=== PATIENT | female | born 1945 | race Caucasian/White ===

== ENCOUNTER 2020-03-27 08:19 | Outpatient (CLI) | payer OTHER, MEDICARE, SELFPAY ==
[2020-03-27 08:52] LABS: Creatinine Urine 237.57 mg/dL (40-278); MALB Creatinine Ratio 29.3 mg/g (0-30); Microalbumin Urine Random 69.8 mg/L
[2020-03-27 08:58] LABS: Hemoglobin A1C 6.2 % (<5.7)
[2020-03-27 09:39] LABS: Alanine Aminotransferase 42 U/L (14-59); Albumin Level 4.1 g/dL (3.4-5.0); Alkaline Phosphatase 86 U/L (46-116); Anion Gap 10 mmol/L (8-16); Aspartate Amino Transferase 44 U/L (15-37); Bilirubin,Total 0.4 mg/dL (0.00-1.00); Blood Urea Nitrogen 18 mg/dL (7-18); Calcium 8.9 mg/dL (8.5-10.1); Carbon Dioxide 26 mmol/L (21-32); Chloride 100 mmol/L (98-108); Cholesterol 172 mg/dL (0-200); Estimated Glomerular Filt Rate 40; Glucose 140 mg/dL (70-99); HDL Direct 64 mg/dL (40-60); LDL Cholesterol Calculated 96 mg/dL (<130); Osmolality Calculated 285 mOsm/kg (285-295); Potassium 4.4 mmol/L (3.5-5.1); Sodium 136 mmol/L (136-145); Total Protein 7.5 g/dL (6.4-8.2); Triglycerides 58 mg/dL (0-150)
== END 2020-03-27 08:20 | disposition home or self-care (01) ==
PROVIDERS: PCP Internal Medicine; Visit Provider Internal Medicine
DX: R73.02 Impaired glucose tolerance (oral) (principal); E78.2 Mixed hyperlipidemia
CPT/HCPCS: 36415; 80053; 80061; 82043; 83036

== ENCOUNTER 2020-04-05 21:09 | Inpatient (IN) | payer OTHER, MEDICARE, SELFPAY ==
--- NOTE | ~2020-04-05 | XR_ITS ---
EXAMINATION: XR chest 1V portable INDICATION: Shortness of breath and fatigue TECHNIQUE: Portable AP chest at 2145 hours COMPARISON: None available FINDINGS: There are airspace opacities of the mid and lower lung zones. No pleural effusion or pneumo thorax is identified. Cardiomegaly is noted. IMPRESSION: 1. Airspace opacities of the mid and lower lung zones, consistent with atelectasis versus pneumonia. Reviewed, dictated and finalized at location A. IMPRESSION: 1. Airspace opacities of the mid and lower lung zones, consistent with atelecta sis versus pneumonia.
--- NOTE | ~2020-04-05 | US_ITS ---
EXAMINATION: US venous doppler [facility] DATE: 04/08/2020 08:13 INDICATION: Shortness of breath TECHNIQUE: Paul scale images without and with compression and Doppler images of the bilateral lower e xtremity veins were obtained. COMPARISON: None FINDINGS: The right common femoral vein, profunda femoral vein, femoral vein, popliteal vein, peroneal trunk, p osterior tibial veins, and greater saphenous vein are patent. The left common femoral vein, profunda femoral vein, femoral vein, popliteal vein, peroneal trunk, po sterior tibial veins, and greater saphenous vein are patent. IMPRESSION: 1. Patent bilateral lower extremity veins. No evidence of deep venous thrombosis. Reviewed, dictated and finalized at location A. IMPRESSION: 1. Patent bilateral lower extremity veins. No evidence of deep venous thrombosi s.
--- NOTE | ~2020-04-05 | CT_ITS ---
EXAMINATION: CTA chest PE protocol DATE: 04/05/2020 23:24 INDICATION: Shortness of breath TECHNIQUE: Computed tomography angiography (CTA) of the chest was performed with 100 mL Omnipaque-350 intravenous contrast timed to evaluate the pulmonary arteries. Coronal maximum intensity projection 3D-reconstructions were created by the technologist. The dose-length product (DLP) was 589.05 mGy-cm. Automated exposure control and iterative reconstruction technique were employed. COMPARISON: None. FINDINGS: The pulmonary arteries are well-opacified. No pulmonary embolism is identified. There are w idespread groundglass airspace opacities throughout all lung zones. There is no pleural effusion or p neumothorax. The heart size is normal. There is mild bilateral hilar and mediastinal lymphadenopathy. There is enlargement of the main and central pulmonary arteries, consistent with pulmonary hypertens ion. A small sliding hiatal hernia is present. There is mild thoracic spondylosis. IMPRESSION: 1. Widespread groundglass opacities of the lungs which could reflect pneumonia, such as COVID 19 pneu monia, or pulmonary edema. Reviewed, dictated and finalized at location A. IMPRESSION: 1. Widespread groundglass opacities of the lungs which could reflect pneumonia, such as COVID 19 pneumonia, or pulmonary edema.
--- NOTE | 2020-04-05 21:17 | ED.SOB ---
HPI - SOB/Dyspnea General Chief Complaint: Shortness of Breath/Dyspnea Stated Complaint: SOB Time Seen by Provider: 04/05/20 21:18 Source: patient Mode of arrival: ambulatory Limitations: no limitations History of Present Illness HPI Narrative: 74-year-old woman comes in today complaining of progressively worse shortness of breath and pain in her legs with ambulation. She states that she began to feel fatigued approximately 1 week ago and the pain in her leg started about 5 days ago. She has a cough, poor appetite, and states that nothing tastes good. She denies chest pain, leg swelling or tenderness, abdominal pain, nausea, vomiting, fever, night sweats or dysuria. She denies previous similar symptoms. MD elicited complaint: shortness of breath and cough Onset (ago): week(s) (1) Timing: progressively worsening Severity: moderate Exacerbating factors: exertion and coughing Relieving factors: rest Associated symptoms: cough Related Data Home Medications Medication Instructions Recorded Confirmed lisinopril 40 mg tablet 40 mg PO DAILY 01/03/20 04/05/20 Allergies Allergy/AdvReac Type Severity Reaction Status Date / Time Penicillins Allergy hives Verified 01/03/20 14:00 Review of Systems Constitutional: Constitutional: Denies chills, Reports fatigue, Denies fever(s) and Denies weakness Eyes: Eyes: Denies change in vision and Denies photophobia ENT: Denies dysphagia, Denies nasal congestion and Denies sore throat Cardiovascular: Cardiovascular: Denies chest pain and Denies radiating jaw, neck or arm pain Respiratory: Respiratory: Denies cough, Denies dyspnea and Denies wheezing Gastrointestinal: Gastrointestinal: Denies abdominal pain, Denies diarrhea, Denies nausea and Denies vomiting Genitourinary: Genitourinary: Denies dysuria Musculoskeletal: Musculoskeletal: Reports as per HPI, Denies arthralgias and Denies joint swelling Comments: Lower leg pain with exertion. Integumentary/Breasts: Skin/Breast: Denies pruritus, Denies erythema and Denies rash Neurologic: Denies vertigo, Denies dizziness and Denies syncope Hematologic/Lymphatic: Hematologic/Lymphatic: Denies easy bleeding and Denies easy bruising Allergic/Immunologic: Allergic/Immunologic: Denies lip swelling and Denies tongue swelling PMFSH Past Medical History Medical History High blood pressure Surgical History Surgical History History of cataract surgery Social History Social History (Updated 04/05/20 @ 21:31 by Michael Brody MD) Smoking status: Never smoker Alcohol intake: never Substance use: never Living arrangements: with family Occupation/Education: occupation 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 Gender identity (if verbalized by the patient): Female Exam Const: General: alert Nutritional Appearance: obese Orientation/consciousness: patient oriented x3 Limitations: no limitations Other: Mild acute distress. HENMT: Head: normal to inspection Ears: external ears normal, TM's normal bilaterally and EAC's normal General nose exam: Normal nares present Face and sinus: normal facial exam Mouth: Yes moist mucous membranes Throat: posterior oropharynx normal Eyes: Conjunctivae: conjunctivae normal Pupils: Equal, round and reactive pupils present EOM: EOMs intact bilaterally Resp: Effort & Inspection: normal respiratory effort, labored ( Mildly increased work of breathing.) and no use of accessory muscles Auscultation: clear to auscultation bilaterally, no rales, no rhonchi and no wheezes Cardio: Rate: regular rate Rhythm: regular rhythm Heart sounds: no murmurs Other: Dorsalis pedis pulses are full and symmetric. Extremities are warm dry and pink. Bilaterally there is no calf tenderness or Homans sign. GI: GI Palp: Yes Soft to palpa
[2020-04-05 21:20] VITALS: BP 186/74; PULSE 83; RESP 20; TEMP 37; O2SAT 89
[2020-04-05 21:26] VITALS: O2SAT 89
--- NOTE | 2020-04-05 21:34 | ECG_ITS ---
Measurements Intervals [place] Rate: 82 P: 0 RI: 147 QRS: 14 QRSD: 89 T: 67 QT: 324 QTc: 379 Interpretive Statements SINUS RHYTHM LEFT VENTRICULAR HYPERTROPHY AND ST-T CHANGE MINIMAL Q WAVES- HIGH LATERAL LEADS BASELINE ARTIFACT- I, II, III BORDERLINE ECG Electronically Signed On 04-06-2020 8:35:42 CDT by Kendall Doe D.O.
[2020-04-05 21:38] VITALS: PULSE 84
[2020-04-05 22:11] LABS: Basophils Absolute Auto 0.01 K/mm3 (0.00-0.10); Basophils Percent Auto 0.2 % (0.0-1.0); Eosinophils Absolute Auto 0.01 K/mm3 (0.02-0.50); Eosinophils Percent Auto 0.2 % (1.0-6.0); Hemoglobin 8.1 g/dL (11.7-13.8); Immature Granulocyte Absolute 0.02 K/mm3 (0.00-0.00); Immature Granulocyte Percent A 0.4 % (0.0-0.0); Lymphocytes Absolute Auto 1.09 K/mm3 (1.10-4.50); Lymphocytes Percent Auto 19.7 % (18.0-42.0); Mean Corpuscular Hemoglobin 21.6 pg (27.0-31.0); Mean Platelet Volume 9.3 fl (9.2-11.8); Monocytes Absolute Auto 0.44 K/mm3 (0.10-0.90); Neutrophils Percent Auto 71.5 % (50.0-70.0); Platelet Count Result 372 K/mm3 (150-420); Red Blood Count 3.75 M/mm3 (4.20-5.40); Red Cell Distribution Width 15.1 % (11.6-14.4); White Blood Count 5.5 K/mm3 (4.8-10.8)
[2020-04-05 22:15] LABS: Base Excess ABG -0.4 mmol/L (0-2); Carboxyhemoglobin 0.1 % (0-1.5); HCO3 ABG 22.7 mmol/L (23-29); Methemoglobin ABG 0.7 % (0-1.5); Oxygen Content ABG 10.9 %vol (16.0-22.0); Oxygen Saturation ABG 90.2 % (95-97); Oxyhemoglobin 89.5 % (94-100); PO2 ABG 60.1 mmHg (75-85); Reduced Hemoglobin 9.7 % (0-1.5); Total Hemoglobin 8.6 g/dL; pH ABG 7.48 (7.35-7.45)
[2020-04-05 22:16] VITALS: O2SAT 91
[2020-04-05 22:16] LABS: Device ROOM AIR; Modified Allen's Test Pass; Site Drawn RIGHT RADIAL
[2020-04-05 22:29] LABS: Partial Thromboplastin Time 29.1 SEC (22.3-31.6); Prothrombin Time 10.7 Seconds (9.64-11.0)
[2020-04-05 22:35] LABS: D Dimer 1.44 mg/L (0.19-0.50)
[2020-04-05 22:37] LABS: Lactic Acid Reflex 1.2 mmol/L (0.4-2.0)
[2020-04-05 22:41] LABS: Alanine Aminotransferase 32 U/L (14-59); Albumin Level 3.1 g/dL (3.4-5.0); Alkaline Phosphatase 94 U/L (46-116); Anion Gap 12 mmol/L (8-16); Aspartate Amino Transferase 42 U/L (15-37); Bilirubin,Total 0.5 mg/dL (0.00-1.00); Blood Urea Nitrogen 19 mg/dL (7-18); Calcium 9.2 mg/dL (8.5-10.1); Carbon Dioxide 25 mmol/L (21-32); Chloride 99 mmol/L (98-108); Estimated CRCL calculation 36 ml/min; Estimated Glomerular Filt Rate 40; Glucose 144 mg/dL (70-99); Osmolality Calculated 287 mOsm/kg (285-295); Potassium 4.1 mmol/L (3.5-5.1); Sodium 136 mmol/L (136-145); Total Protein 7.3 g/dL (6.4-8.2)
[2020-04-05 22:42] LABS: BNP 53.6 pg/mL (0-100); Troponin I < 0.02 ng/mL (0.00-0.056)
[2020-04-05 22:43] LABS: CRP > 10.6 mg/dL (0.0-0.9)
[2020-04-05 22:47] LABS: Add Urine Microscopic? YES; Appearance Urine Clear (Clear); Bilirubin Urine Negative (Negative); Blood Urine Negative (Negative); Color Urine Yellow (Yellow); Glucose Urine UA Negative (Negative); Ketones Urine Negative (Negative); Leukocyte Esterase Ur 1+ LEU/UL (Negative); Nitrate Urine Negative (Negative); Protein Urine Negative (Negative); Specific Grav Ur 1.015 (1.010-1.020); pH Urine 5.5 (5.0-8.0)
[2020-04-05 22:56] LABS: RBC Urine 0-2 /hpf (0-2)
[2020-04-05 22:57] LABS: Bacteria Urine 1+ /hpf; Squamous Epithelial Cell Urine Rare /hpf (Few); WBC Urine 21-30 /hpf (0-3)
--- NOTE | 2020-04-05 23:13 | PC.NURSE ---
Report given to Brii RN
[2020-04-05 23:15] LABS: Creatine Kinase 91 U/L (26-192)
[2020-04-05] MEDS: SODIUM CHLORIDE 0.9% IV 500 ML 999 ML IV CONT (23:40)
[2020-04-05 23:41] VITALS: BP 140/72; PULSE 73; RESP 22; TEMP 37; O2SAT 95
[2020-04-05 23:51] VITALS: PULSE 69
[2020-04-06] VITALS (12 sets, daily range): BP systolic 116–160; BP diastolic 45–78; PULSE 63–80; RESP 18–20; TEMP 36.2–36.6; O2SAT 78–98; BMI 32.7
--- NOTE | 2020-04-06 01:10 | ADMGEN ---
This patient, Annie Virgen, was admitted to 2nd Floor Room 210-1. Patient/family oriented to hospital policies and general routines including ID bracelet, bed and alarms, visiting hours, pain management, procedures, bathroom and other care routines, personal items, smoking policy, room service/diet, and visiting hours. Valuables list has been completed. Information on how to activate the Rapid Response Team has been discussed. Patient/Family are encouraged to report perceived risks to care and to ask questions if they do not understand what they are told or what they should do.
[2020-04-06] MEDS: SODIUM CHLORIDE 0.9% IV 1,000 ML 100 ML IV CONT (01:49)
[2020-04-06] MEDS: ACETAMINOPHEN 325 MG TABLET 650 MG PO ×3 (01:50→20:26)
--- NOTE | 2020-04-06 01:50 | PC.NURSE ---
Patient admitted to room 210 at 0110 from ER. Patient on 3 liters O2 by nasal cannula started in ER. Also present at time of admission were 2 peripheral IV sites. Patient alert and oriented. Patient is able to ambulate independently. Once patient was settled in bed, she was placed on telemetry and oxygen was started from the wall unit in the room. Patient stated that she works in [place] and was informed that one of her coworkers tested positive for Covid 19. The Patient states that she began having symptoms such and cough and SOB on Sunday 04/01 and She was tested for Covid 19 on 04/04 at approximately 1030 at [facility]. Patient is also reporting that prior to coming to the hospital she was having cramping in her calves bilaterally, she is denying this pain at the time of admission but she is reporting a headache. Patient was informed of how to use the call light and bed controls patient was also shown how to unplug the IV pole for ambulation.
[2020-04-06 05:42] LABS: Basophils Absolute Auto 0.01 K/mm3 (0.00-0.10); Basophils Percent Auto 0.2 % (0.0-1.0); Eosinophils Absolute Auto 0.02 K/mm3 (0.02-0.50); Eosinophils Percent Auto 0.3 % (1.0-6.0); Hematocrit 26.2 % (35.0-42.0); Hemoglobin 7.8 g/dL (11.7-13.8); Immature Granulocyte Absolute 0.03 K/mm3 (0.00-0.00); Immature Granulocyte Percent A 0.5 % (0.0-0.0); Lymphocytes Percent Auto 22.2 % (18.0-42.0); Mean Corpuscular HGB Conc 29.8 g/dL (32.0-36.0); Mean Corpuscular Hemoglobin 21.6 pg (27.0-31.0); Mean Corpuscular Volume 72.6 fL (78.0-102.0); Mean Platelet Volume 8.6 fl (9.2-11.8); Monocytes Percent Auto 8.5 % (2.0-11.0); Neutrophils Percent Auto 68.3 % (50.0-70.0); Platelet Count Result 350 K/mm3 (150-420); Red Blood Count 3.61 M/mm3 (4.20-5.40); White Blood Count 5.9 K/mm3 (4.8-10.8)
[2020-04-06 05:57] LABS: Alanine Aminotransferase 25 U/L (14-59); Albumin Level 2.9 g/dL (3.4-5.0); Alkaline Phosphatase 86 U/L (46-116); Anion Gap 9 mmol/L (8-16); Aspartate Amino Transferase 37 U/L (15-37); Bilirubin,Total 0.3 mg/dL (0.00-1.00); Blood Urea Nitrogen 16 mg/dL (7-18); Calcium 8.8 mg/dL (8.5-10.1); Carbon Dioxide 26 mmol/L (21-32); Chloride 102 mmol/L (98-108); Estimated CRCL calculation 39 ml/min; Estimated Glomerular Filt Rate 41; Glucose 151 mg/dL (70-99); Osmolality Calculated 288 mOsm/kg (285-295); Potassium 4.2 mmol/L (3.5-5.1); Sodium 137 mmol/L (136-145); Total Protein 6.9 g/dL (6.4-8.2)
[2020-04-06] MEDS: ALBUTEROL SULFATE (*SP) INHALER 2 PUFF INHALATION ×4 (06:13→20:24)
--- NOTE | 2020-04-06 06:14 | PC.NURSE ---
Dr Brody notified of morning lab values. No New Orders.
[2020-04-06] MEDS: ENOXAPARIN 100 MG/ML SYRINGE 90 MG SUB-Q (09:32)
[2020-04-06] MEDS: lisinopriL 20 MG TABLET 40 MG PO (09:33)
--- NOTE | 2020-04-06 11:54 | PC.NURSE ---
1030 Called Urgent care in [place] to see covid results back yet. No results back yet.
--- NOTE | 2020-04-06 12:28 | PM.IMHP ---
H&P: HPI History of Present Illness Date/Time: 04/06/20 12:28 <KIMBERLY Ramirez - Last Filed: 04/06/20 13:08> Chief complaint: SOB <KIMBERLY Ramirez - Last Filed: 04/06/20 13:08> Narrative: Annie Virgen is a 74 year old female that presented to the ED with complaints of shortness of breath, dyspnea and fatigue.According to patient she became fatigued with shortness of breath and developed leg pains bilaterally last Wednesday. She noted that she was able to go to work Wednesday and Wednesday. she was not able to go to work on due to increased shortness of breath, fatigue and worsening leg pain. she also noted that she had a cough or with a poor appetite and change in her taste buds. 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 patient did not do anything at home to relieve her symptoms. her vital signs are 97.4, 63, 20, 96 %, 127/50. Chest x-ray indicated pneumonia, CTA indicated pneumonia versus COVID-19 versus pulmonary edema. Patient's D-dimer elevated at 1.44. Patient EKG showing sinus rhythm and patient's UA shows leukocytes with bacteria. Her WBCs were within normal limits. Patient is being admitted to rule out COVID-19 and treated for CAP. Patient denies cp, , palpitation, diarrhea, constipation, lightheadness, headache, dizziness or chills and fevers. <KIMBERLY Ramirez - Last Filed: 04/06/20 13:08> Review of Systems Review of Systems: All systems reviewed & are unremarkable except as noted in HPI and below ( 10 point system review) <KIMBERLY Ramirez - Last Filed: 04/06/20 13:08> [facility] Past Medical History Medical History: Medical History High blood pressure <KIMBERLY Ramirez - Last Filed: 04/06/20 13:08> Surgical History Surgical History: Surgical History History of cataract surgery <KIMBERLY Ramirez - Last Filed: 04/06/20 13:08> Social History Social History: Social History (Updated 04/05/20 @ 21:31 by Michael Brody MD) Smoking status: Never smoker Alcohol intake: never Substance use: never Living arrangements: with family Occupation/Education: occupation 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 Gender identity (if verbalized by the patient): Female Spiritual care concerns: No <KIMBERLY Ramirez - Last Filed: 04/06/20 13:08> Meds Home Medications and Allergies Home medications: Home Medications Medication Instructions Recorded Confirmed Type lisinopril 40 mg tablet 40 mg PO DAILY 01/03/20 04/05/20 History <KIMBERLY Ramirez - Last Filed: 04/06/20 13:08> Allergies/Adverse reactions: Allergies Allergy/AdvReac Type Severity Reaction Status Date / Time Penicillins Allergy hives Verified 01/03/20 14:00 <KIMBERLY Ramirez - Last Filed: 04/06/20 13:08> Vital Signs Vital Signs - 24 hr 04/05/20 21:20 04/05/20 21:26 04/05/20 21:38 Temperature 98.6 F Pulse Rate 83 84 Respiratory Rate 20 Blood Pressure 186/74 H Pulse Oximetry 89 L 89 L 04/05/20 22:16 04/05/20 23:41 04/05/20 23:51 Temperature 98.6 F Pulse Rate 73 69 Respiratory Rate 22 H Blood Pressure 140/72 Pulse Oximetry 91 95 04/06/20 01:20 04/06/20 01:37 04/06/20 01:38 Temperature 97.2 F L 98 F Pulse Rate 69 69 66 Respiratory Rate 18 18 18 Blood Pressure 160/68 H 140/78 Pulse Oximetry 95 95 98 04/06/20 02:54 04/06/20 04:00 04/06/20 07:44 Temperature 97.4 F L Pulse Rate 63 64 Respiratory Rate 18 20 Blood Pressure 127/50 L Pulse Oximetry 96 04/06/20 08:00 Temperature 97.9 F Pulse Rate 70 Respiratory Rate 20 Blood Pressure 122/51 L Pulse Oximetry 94 <GIULIA RamirezC - Last Filed: 04/06/20 13:08> Exam Narrativ
--- NOTE | 2020-04-06 19:30 | PC.NURSE ---
Pt resting per bed, watching TV. Has no complaints. Belongings within reach. Call tena in reach. Reminded to call with needs.
[2020-04-06] MEDS: APIXABAN 2.5 MG TABLET 10 MG PO (20:22)
--- NOTE | 2020-04-06 22:27 | PC.NURSE ---
PT WATCHING TV PER BED. STATES SHE STILL HAS A RANDALL, RATES 5 ON 1-10 SCALE. HAS NO OTHER COMPLAINTS. STATES SHE JUST NEEDS TO GO TO SLEEP. CALL SEVILLA IN REACH. REMINDED TO CALL WITH NEEDS.
[2020-04-07] VITALS (8 sets, daily range): BP systolic 106–149; BP diastolic 49–76; PULSE 61–82; RESP 18–20; TEMP 36–36.8; O2SAT 90–97
[2020-04-07] MEDS: ACETAMINOPHEN 325 MG TABLET 650 MG PO (05:15)
[2020-04-07] MEDS: ALBUTEROL SULFATE (*SP) INHALER 2 PUFF INHALATION ×4 (05:29→20:40)
[2020-04-07 05:49] LABS: Hematocrit 25.5 % (35.0-42.0); Hemoglobin 7.5 g/dL (11.7-13.8); Mean Corpuscular HGB Conc 29.4 g/dL (32.0-36.0); Mean Corpuscular Hemoglobin 21.6 pg (27.0-31.0); Mean Corpuscular Volume 73.3 fL (78.0-102.0); Mean Platelet Volume 9.1 fl (9.2-11.8); Platelet Count Result 396 K/mm3 (150-420); Red Blood Count 3.48 M/mm3 (4.20-5.40); White Blood Count 5.5 K/mm3 (4.8-10.8)
[2020-04-07 06:12] LABS: Alanine Aminotransferase 22 U/L (14-59); Albumin Level 2.7 g/dL (3.4-5.0); Alkaline Phosphatase 86 U/L (46-116); Anion Gap 10 mmol/L (8-16); Aspartate Amino Transferase 38 U/L (15-37); Bilirubin,Total 0.4 mg/dL (0.00-1.00); Blood Urea Nitrogen 14 mg/dL (7-18); Calcium 8.4 mg/dL (8.5-10.1); Carbon Dioxide 25 mmol/L (21-32); Chloride 103 mmol/L (98-108); Estimated CRCL calculation 41 ml/min; Estimated Glomerular Filt Rate 43; Glucose 167 mg/dL (70-99); Magnesium 1.9 mg/dL (1.8-2.4); Osmolality Calculated 290 mOsm/kg (285-295); Potassium 4.4 mmol/L (3.5-5.1); Sodium 138 mmol/L (136-145); Total Protein 6.3 g/dL (6.4-8.2)
[2020-04-07 06:15] LABS: Total Cells Counted 100
[2020-04-07 06:16] LABS: Anisocytosis 1+ (NORMAL); Band Neutrophils Percent 0 % (0-6); Basophils Percent Manual 0 % (0-1); Eosinophils Absolute Manual 0.11 K/mm3 (0.02-0.5); Eosinophils Percent Manual 2 % (1-6); Hypochromasia 1+ (NORMAL); Lymphocytes Absolute Manual 1.26 K/mm3 (1.1-4.5); Lymphocytes Percent Manual 23 % (18-44); Monocytes Absolute Manual 0.27 K/mm3 (0.1-0.90); Monocytes Percent Manual 5 % (3-9); Neutrophils Absolute Manual 3.85 K/mm3 (1.7-7.2); Neutrophils Percent Manual 70 % (46-73); Platelet Estimate Adequate (Adequate)
[2020-04-07 06:17] LABS: Atypical Lymphocytes Present
[2020-04-07 06:39] LABS: CRP 17.6 mg/dL (0.0-0.9)
[2020-04-07] MEDS: APIXABAN 2.5 MG TABLET 10 MG PO ×2 (08:12→20:40)
[2020-04-07] MEDS: lisinopriL 20 MG TABLET 40 MG PO (08:13)
--- NOTE | 2020-04-07 08:54 | WPDPN ---
Progress Note: A&P Assessment and Plan (1) High blood pressure: Code(s): I10 - Essential (primary) hypertension Status: Acute Assessment and Plan: blood pressure 126/50 control continue to monitor vital signs as ordered stat adjust medication as needed continue lisinopril 40 mg p.o. daily (2) COVID-19 ruled out: Code(s): Z03.818 - Encounter for observation for suspected exposure to other biological agents ruled out Status: Acute Assessment and Plan: recent exposure continue isolation COVID-19 pending (3) Community acquired pneumonia: Code(s): J18.9 - Pneumonia, unspecified organism Status: Acute Assessment and Plan: chest x-ray indicated Airspace opacities of the mid and lower lung zones, consistent with atelectasis versus pneumonia. CTA indicates Widespread groundglass opacities of the lungs which could reflect pneumonia, such as COVID 19 pneumonia, or pulmonary edema. continue azithromycin 250 mg Q 24 hours day 2 Patient will possibly need at home to eval if not able to titrate off of oxygen. (4) Elevated d-dimer: Code(s): R79.89 - Other specified abnormal findings of blood chemistry Status: Acute Assessment and Plan: CTA PE patient does complain of may pains with ambulation, Homans test negative patient started on Eliquis 10 mg b.i.d. for 7 days Doppler unable to be completed until Wednesday Review of Systems Review of Systems: All systems reviewed & are unremarkable except as noted in HPI and below ( 10 point system review) Exam Narrative: Exam Narrative: General: A well-developed, well-nourished fatigued female in bed no acute distress. HEENT: Normocephalic, atraumatic. PERRL, EOMI. Sclerae anicteric. Oral mucosa moist. Oropharynx clear. Neck: Supple. Respiratory: crackles in base Cardiovascular: Regular rate and rhythm with S1-S2. Gastrointestinal: Abdomen is soft, nontender, and nondistended with positive bowel sounds. No organomegaly. Skin: Warm, dry, and slightly pale.. No rash or lesions on limited exam. Extremities: No cyanosis, clubbing, or edema. Radial and pedal pulses intact. Neurological: Alert. Cranial nerves 2-12 are grossly intact. No gross focal deficits to casual conversation. Psychiatric: Pleasant and cooperative with normal mood and affect. Judgment and insight intact. Objective Data Vital Signs Vital Signs: Vital Signs - 24 hr 04/06/20 12:00 04/06/20 15:40 04/06/20 15:44 Temperature 97.3 F L Pulse Rate 67 80 Respiratory Rate 20 Blood Pressure 126/45 L 116/58 L Pulse Oximetry 96 94 78 L 04/06/20 16:35 04/06/20 19:23 04/07/20 00:00 Temperature 97.6 F 96.8 F L Pulse Rate 70 77 66 Respiratory Rate 20 20 Blood Pressure 136/56 L 149/53 H Pulse Oximetry 94 96 04/07/20 04:00 04/07/20 07:49 Temperature 97.2 F L Pulse Rate 66 64 Respiratory Rate 18 Blood Pressure 126/50 L Pulse Oximetry 97 Intake/Output Intake/Output: Intake & Output 04/04/20 04/05/20 04/06/20 04/07/20 23:59 23:59 23:59 23:59 Intake Total 2910 660 Output Total 1550 950 Balance 1360 -290 Meds/Results Medications: Active Medications Generic Name Dose Route Start Last Admin Trade Name Freq PRN Reason Stop Dose Admin Acetaminophen 650 mg 04/05/20 23:51 04/07/20 05:15 Tylenol Tablet PO 650 mg Q4H PRN Administration Mild Pain (1-3) or Fever Hydrocodone Bitart/Acetaminophen 1 tab 04/07/20 08:47 Dougherty 5-325 Mg PO Q6H PRN Pain Rated 7-10 Albuterol 2 puff 04/06/20 06:30 04/07/20 05:29 Proventil Hfa INHALATION 2 puff QIDRT DAE Administration Apixaban 10 mg 04/06/20 21:00 04/07/20 08:12 Eliquis PO 04/13/20 21:01 10 mg Q12HR DAE Administration Ceftriaxone Sodium/Dextrose 1 gm in 50 mls @ 100 mls/hr 04/07/20 00:00 04/07/20 01:00 Rocephin 1 Gm/D5w 50 Ml IVPB Infused Q24H DAE Infusion Azithromycin 500 mg/
--- NOTE | 2020-04-07 10:17 | PC.NURSE ---
When called urgent care in [place] about the covid results for patient not in yet.
[2020-04-07] MEDS: DEXAMETHASONE SOD PHOS INJ 4 MG/ML VIAL 6 MG IV PUSH (13:12)
[2020-04-07] MEDS: REMDESIVIR 200 MG/NS 250 ML 200 MG/250 ML BAG 250 MG IVPB (13:13)
[2020-04-07] MEDS: HYDROcodone/acetaminophen (*CRX) 5-325 MG TABLET 1 TAB PO (18:06)
--- NOTE | 2020-04-07 19:32 | PC.NURSE ---
Patient sleeping quietly in bed, no signs of distress noted. Breathing unlabored. 02@3l per nc cont. Call light within reach.
--- NOTE | 2020-04-07 21:25 | PC.NURSE ---
Patient resting quietly in bed. Denies any needs. Call light at side.
--- NOTE | 2020-04-07 22:15 | PC.NURSE ---
Patient resting quietly in bed, hob elevated watching tv. Reports no needs at this time. Call light and belongings within reach.
[2020-04-08] VITALS: BP 112/45; PULSE 62; RESP 20; TEMP 36.9; O2SAT 92
--- NOTE | 2020-04-08 00:09 | PC.NURSE ---
Pt resting quietly in bed and oxygen is on at 3 liters per nasal cannula. Pt doesnt voice any c/o shortness of breath and no signs of respiratory distress noted.
--- NOTE | 2020-04-08 02:05 | PC.NURSE ---
Pt asleep and no signs of respiratory distress noted.
[2020-04-08 04:00] VITALS: BP 125/53; PULSE 48; PULSE 64; RESP 20; TEMP 36.4; O2SAT 96
--- NOTE | 2020-04-08 04:10 | PC.NURSE ---
Pt asleep and no signs of respiratory distress noted.
[2020-04-08 05:47] LABS: Hematocrit 25.9 % (35.0-42.0); Hemoglobin 7.5 g/dL (11.7-13.8); Mean Corpuscular Hemoglobin 21.1 pg (27.0-31.0); Mean Platelet Volume 9.2 fl (9.2-11.8); Platelet Count Result 443 K/mm3 (150-420); Red Blood Count 3.55 M/mm3 (4.20-5.40); Red Cell Distribution Width 14.9 % (11.6-14.4); White Blood Count 4.1 K/mm3 (4.8-10.8)
[2020-04-08 06:10] LABS: Alanine Aminotransferase 18 U/L (14-59); Albumin Level 2.6 g/dL (3.4-5.0); Alkaline Phosphatase 87 U/L (46-116); Anion Gap 10 mmol/L (8-16); Aspartate Amino Transferase 44 U/L (15-37); Bilirubin,Total 0.4 mg/dL (0.00-1.00); Blood Urea Nitrogen 18 mg/dL (7-18); Calcium 8.6 mg/dL (8.5-10.1); Carbon Dioxide 24 mmol/L (21-32); Chloride 105 mmol/L (98-108); Estimated CRCL calculation 44 ml/min; Estimated Glomerular Filt Rate 47; Glucose 182 mg/dL (70-99); Magnesium 2.3 mg/dL (1.8-2.4); Osmolality Calculated 294 mOsm/kg (285-295); Potassium 4.7 mmol/L (3.5-5.1); Sodium 139 mmol/L (136-145); Total Protein 6.5 g/dL (6.4-8.2)
[2020-04-08 06:19] LABS: CRP 18.6 mg/dL (0.0-0.9)
[2020-04-08] MEDS: ALBUTEROL SULFATE (*SP) INHALER 2 PUFF INHALATION ×4 (06:37→20:21)
--- NOTE | 2020-04-08 06:47 | PC.NURSE ---
Pt given albuterol hfa 2 puffs as ordered
--- NOTE | 2020-04-08 07:58 | PM.IMPN ---
Progress Note: A&P Assessment and Plan (1) High blood pressure: Code(s): I10 - Essential (primary) hypertension Status: Acute Assessment and Plan: 04/08/2020 vital signs stable, continue to monitor vital signs, adjust medication as needed, continue lisinopril 40 mg p.o. daily (2) Community acquired pneumonia: Code(s): J18.9 - Pneumonia, unspecified organism Status: Acute Assessment and Plan: 04/08/2020 patient states her breathing is improved since her stay, Supplemental oxygen for SP O2 92% or greater, azithromycin was stopped by pharmacy, continue with COVID medication regimen as noted below (3) Elevated d-dimer: Code(s): R79.89 - Other specified abnormal findings of blood chemistry Status: Acute Assessment and Plan: 04/08/2020 CTA does not show PE per radiologist report, Eliquis this stopped due to COVID positive Lovenox started, will monitor respiratory status and vital signs Radiologist Impression: 1. Patent bilateral lower extremity veins. No evidence of deep venous thrombosis.y (4) COVID-19 virus detected: Code(s): U07.1 - COVID-19 Status: Acute Assessment and Plan: 04/08/2020 continue Remdesivir and dexamethasone, monitor respiratory status and vital signs, supplemental oxygen as needed Time Spent With Patient Time with patient: 15 - 25 minutes Subjective Date/time seen: 04/08/20 07:58 patient understands that she is positive for COVID-19. she denies any shortness of breath at this time but she does admit that she has periodic coughing. Denies any muscle aches or body aches in no feeling fevers or chills. Patient states to which she could go back home into her 14 day isolation there with her sister who is her roommate. Her sister is awaiting her COVID test results. Patient would like paperwork filled out for her regarding short-term disability while she is on her 14 day isolation whether be here or at home. informed patient I will fill this out as soon as I get a copy of the paperwork. Review of Systems Constitutional: Constitutional: Reports no additional constitutional complaints, Denies body ache(s), Denies chills, Denies fatigue and Denies fever(s) Cardiovascular: Cardiovascular: Reports no additional cardiovascular complaints, Denies chest pain, Denies chest pain at rest, Denies dyspnea, Denies dyspnea on exertion and Denies orthopnea Comments: Respiratory: Respiratory: Reports cough (Admits to coughing and says this has improved.) Gastrointestinal: Gastrointestinal: Reports no additional gastrointestinal complaints Musculoskeletal: Musculoskeletal: Denies myalgias and Denies arthralgias Neurologic: Reports system reviewed and no additional complaints, except as documented Exam Const: General: cooperative and comfortable ( other than occasional coughing) Orientation/consciousness: oriented to person, oriented to place and oriented to time ( and events) Resp: Effort & Inspection: normal respiratory effort and Actively coughing Auscultation: wheezes ( just prior to coughing otherwise clear) Cardio: Rate: regular rate Rhythm: regular rhythm Heart sounds: S1 normal heart sound present and S2 normal heart sound present Skin: General skin exam: normal color and dry skin Neuro: General: oriented to person, oriented to place and oriented to time ( and events) Cranial nerves: Yes CN's II-XII intact bilaterally ( grossly intact) Cognition (Neuro): normal cognition Speech: normal speech Psych: Appearance: grossly normal Speech and movement: Normal speech and movement present Affect: normal affect Attitude: cooperative Thought process: Normal thought process present Objective Data Vital Signs Vital Signs: Vital Signs - 24 hr 04/07/20 08:00 04/07/20 12:00 04/07/20 16:00 Temperature 97.4 F L 97.6 F 98.1 F Pulse Rate 64 82 78 Respiratory Rate 20 18 18 Blood Pressure 140/74 106/76 138/50 L Pulse Oximetry 90 94 95 04/07/20 20:3
[2020-04-08 08:00] VITALS: BP 135/48; PULSE 67; PULSE 80; RESP 18; TEMP 36.6; O2SAT 92
[2020-04-08] MEDS: APIXABAN 2.5 MG TABLET 10 MG PO (09:39)
[2020-04-08] MEDS: ACETAMINOPHEN 325 MG TABLET 650 MG PO (09:40)
[2020-04-08] MEDS: lisinopriL 20 MG TABLET 40 MG PO (09:40)
[2020-04-08 12:00] VITALS: BP 136/45; PULSE 65; RESP 18; TEMP 36.6; O2SAT 92
[2020-04-08] MEDS: REMDESIVIR 100 MG/NS 250 ML 100 MG/250 ML BAG 250 MG IVPB (12:37)
[2020-04-08] MEDS: PANTOPRAZOLE SODIUM IV 40 MG VIAL IV PUSH (14:12)
[2020-04-08 16:00] VITALS: BP 144/45; PULSE 67; RESP 18; TEMP 36.5; O2SAT 91
[2020-04-08 20:00] VITALS: BP 135/41; PULSE 66; PULSE 68; RESP 22; TEMP 36.6; O2SAT 90
[2020-04-08] MEDS: HYDROcodone/acetaminophen (*CRX) 5-325 MG TABLET 1 TAB PO (21:29)
[2020-04-09] VITALS (8 sets, daily range): BP systolic 122–149; BP diastolic 45–88; PULSE 56–74; RESP 16–20; TEMP 36.1–36.7; O2SAT 88–95
[2020-04-09 05:45] LABS: Hematocrit 26.2 % (35.0-42.0); Hemoglobin 7.7 g/dL (11.7-13.8); Immature Platelet Fraction Pct 1.5 % (1.0-7.0); Mean Corpuscular HGB Conc 29.4 g/dL (32.0-36.0); Mean Corpuscular Hemoglobin 21.4 pg (27.0-31.0); Mean Platelet Volume 9.1 fl (9.2-11.8); Platelet Count Result 567 K/mm3 (150-420); Red Blood Count 3.59 M/mm3 (4.20-5.40); Red Cell Distribution Width 15.1 % (11.6-14.4); White Blood Count 12.6 K/mm3 (4.8-10.8)
[2020-04-09 06:04] LABS: Alanine Aminotransferase 22 U/L (14-59); Albumin Level 2.5 g/dL (3.4-5.0); Alkaline Phosphatase 82 U/L (46-116); Anion Gap 8 mmol/L (8-16); Aspartate Amino Transferase 26 U/L (15-37); Bilirubin,Total 0.3 mg/dL (0.00-1.00); Blood Urea Nitrogen 29 mg/dL (7-18); Carbon Dioxide 25 mmol/L (21-32); Chloride 105 mmol/L (98-108); Estimated CRCL calculation 38 ml/min; Estimated Glomerular Filt Rate 39; Glucose 143 mg/dL (70-99); Osmolality Calculated 293 mOsm/kg (285-295); Potassium 4.5 mmol/L (3.5-5.1); Sodium 138 mmol/L (136-145); Total Protein 6.9 g/dL (6.4-8.2)
[2020-04-09] MEDS: ALBUTEROL SULFATE (*SP) INHALER 2 PUFF INHALATION ×4 (06:18→21:13)
[2020-04-09] MEDS: PANTOPRAZOLE SODIUM IV 40 MG VIAL IV PUSH (09:32)
[2020-04-09] MEDS: ENOXAPARIN 40 MG/0.4 ML SYRINGE SUB-Q (09:32)
[2020-04-09] MEDS: DEXAMETHASONE 4 MG TABLET 6 MG PO (09:33)
[2020-04-09] MEDS: lisinopriL 20 MG TABLET 40 MG PO (09:33)
[2020-04-09] MEDS: AZITHROMYCIN 250 MG TABLET PO (10:39)
[2020-04-09] MEDS: REMDESIVIR 100 MG/NS 250 ML 100 MG/250 ML BAG IVPB (12:08)
--- NOTE | 2020-04-09 13:31 | PM.IMPN ---
Progress Note: A&P Assessment and Plan (1) High blood pressure: Code(s): I10 - Essential (primary) hypertension <BRENDAN Patel - Last Filed: 04/09/20 13:52> Status: Acute <BRENDAN Patel - Last Filed: 04/09/20 13:52> Assessment and Plan: 04/08/2020 vital signs stable, continue to monitor vital signs, adjust medication as needed, continue lisinopril 40 mg p.o. daily 04/09/2020 vital signs stable,will continue medication and monitor patient <BRENDAN Patel - Last Filed: 04/09/20 13:52> (2) Community acquired pneumonia: Code(s): J18.9 - Pneumonia, unspecified organism <BRENDAN Patel - Last Filed: 04/09/20 13:52> Status: Acute <BRENDAN Patel - Last Filed: 04/09/20 13:52> Assessment and Plan: 04/08/2020 patient states her breathing is improved since her stay, Supplemental oxygen for SP O2 92% or greater, azithromycin was stopped by pharmacy, continue with COVID medication regimen as noted below 04/09/2020 patient states her breathing has improved yet again today, her lungs do sound more clear, restarted azithromycin for 5 days in total starting today, continue with COVID regimen, white count is elevated likely due to COVID and steroid medication <ART PatelC - Last Filed: 04/09/20 13:52> (3) Elevated d-dimer: Code(s): R79.89 - Other specified abnormal findings of blood chemistry <ART PatelC - Last Filed: 04/09/20 13:52> Status: Acute <BRENDAN Patel - Last Filed: 04/09/20 13:52> Assessment and Plan: 04/08/2020 CTA does not show PE per radiologist report, Eliquis this stopped due to COVID positive Lovenox started, will monitor respiratory status and vital signs Radiologist Impression: 1. Patent bilateral lower extremity veins. No evidence of deep venous thrombosis. 04/09/2020 breathing slowly improving, no new peripheral edema <BRENDAN Patel - Last Filed: 04/09/20 13:52> (4) COVID-19 virus detected: Code(s): U07.1 - COVID-19 <Bill PugaBRENDAN Aguayo - Last Filed: 04/09/20 13:52> Status: Acute <Bill PugaBRENDAN Aguayo - Last Filed: 04/09/20 13:52> Assessment and Plan: 04/08/2020 continue Remdesivir and dexamethasone, monitor respiratory status and vital signs, supplemental oxygen as needed 04/09/2020 continue as above with addition of azithromycin for 5 days 04/09/2020 start date <BRENDAN Patel - Last Filed: 04/09/20 13:52> Subjective Date/time seen: 04/09/20 13:31 Patient's visit she is breathing better today however she is sitting in bed coughing when he takes a deep breath or while trying to talk. patient still would like to have her quarantine at home however she lives with her sister and at this point time it is unknown what her sister's COVID test results. patient would also like me to fill out her short-term disability for her work. I just received the paperwork today and hope to get it completed by the end of shift. <BRENDAN Patel - Last Filed: 04/09/20 13:52> Review of Systems Review of Systems: All systems reviewed & are unremarkable except as noted in HPI and below ( 10 point system review) <BRENDAN Patel - Last Filed: 04/09/20 13:52> Constitutional: Constitutional: Reports no additional constitutional complaints, Denies body ache(s), Denies chills, Denies fatigue and Denies fever(s) <BRENDAN Patel - Last Filed: 04/09/20 13:52> Cardiovascular: Cardiovascular: Reports no additional cardiovascular complaints, Denies chest pain, Denies chest pain at rest, Denies chest pain with activity, Denies dyspnea, Denies dyspnea on exertion and Denies orthopnea <BRENDAN Patel - Last Filed: 04/09/20 13:52> Respiratory: Respiratory: Reports cough (Admits to coughing and says this has improved.), Denies dyspnea and Denies dyspnea on exertion <Bill Correa, RELIEF DRILLER-C - Last File
[2020-04-09] MEDS: traZODone HCL 50 MG TABLET PO (21:13)
[2020-04-10] VITALS: BP 133/51; PULSE 53; RESP 18; TEMP 36.3; O2SAT 94
[2020-04-10 04:00] VITALS: BP 134/40; PULSE 55; PULSE 58; RESP 18; TEMP 36.2; O2SAT 93
[2020-04-10] MEDS: ALBUTEROL SULFATE (*SP) INHALER 2 PUFF INHALATION ×4 (05:51→20:13)
[2020-04-10 06:11] LABS: Alanine Aminotransferase 20 U/L (14-59)
[2020-04-10 08:00] VITALS: BP 130/50; PULSE 50; PULSE 62; RESP 16; TEMP 36.1; O2SAT 94
[2020-04-10] MEDS: AZITHROMYCIN 250 MG TABLET PO (08:19)
[2020-04-10] MEDS: DEXAMETHASONE 4 MG TABLET 6 MG PO (08:19)
[2020-04-10] MEDS: ENOXAPARIN 40 MG/0.4 ML SYRINGE SUB-Q (08:20)
[2020-04-10] MEDS: PANTOPRAZOLE SODIUM IV 40 MG VIAL IV PUSH (08:20)
[2020-04-10] MEDS: lisinopriL 20 MG TABLET 40 MG PO (08:20)
--- NOTE | 2020-04-10 08:22 | PM.IMPN ---
Progress Note: A&P Assessment and Plan (1) High blood pressure: Code(s): I10 - Essential (primary) hypertension <BRENDAN Patel - Last Filed: 04/10/20 14:12> Status: Acute <BRENDAN Patel - Last Filed: 04/10/20 14:12> Assessment and Plan: 04/08/2020 vital signs stable, continue to monitor vital signs, adjust medication as needed, continue lisinopril 40 mg p.o. daily 04/09/2020 vital signs stable,will continue medication and monitor patient 04/10/2020 vital signs stable, heart rate lower end of normal occasional upper end bradycardia, continue with regimen and monitoring <BRENDAN Patel - Last Filed: 04/10/20 14:12> (2) Community acquired pneumonia: Code(s): J18.9 - Pneumonia, unspecified organism <BRENDAN Patel - Last Filed: 04/10/20 14:12> Status: Acute <BRENDAN Patel - Last Filed: 04/10/20 14:12> Assessment and Plan: 04/08/2020 patient states her breathing is improved since her stay, Supplemental oxygen for SP O2 92% or greater, azithromycin was stopped by pharmacy, continue with COVID medication regimen as noted below 04/09/2020 patient states her breathing has improved yet again today, her lungs do sound more clear, restarted azithromycin for 5 days in total starting today, continue with COVID regimen, white count is elevated likely due to COVID and steroid medication 04/10/2020 continue current regiment, patient admits improvement with breathing <ART PatelC - Last Filed: 04/10/20 14:12> (3) Elevated d-dimer: Code(s): R79.89 - Other specified abnormal findings of blood chemistry <BRENDAN Patel - Last Filed: 04/10/20 14:12> Status: Acute <BRENDAN Patel - Last Filed: 04/10/20 14:12> Assessment and Plan: 04/08/2020 CTA does not show PE per radiologist report, Eliquis this stopped due to COVID positive Lovenox started, will monitor respiratory status and vital signs Radiologist Impression: 1. Patent bilateral lower extremity veins. No evidence of deep venous thrombosis. 04/09/2020 breathing slowly improving, no new peripheral edema 04/10/2020 no change <Bill PugaBRENDAN Aguayo - Last Filed: 04/10/20 14:12> (4) COVID-19 virus detected: Code(s): U07.1 - COVID-19 <Bill BRENDAN Marcial - Last Filed: 04/10/20 14:12> Status: Acute <Bill PugaBRENDAN Aguayo - Last Filed: 04/10/20 14:12> Assessment and Plan: 04/08/2020 continue Remdesivir and dexamethasone, monitor respiratory status and vital signs, supplemental oxygen as needed 04/09/2020 continue as above with addition of azithromycin for 5 days 04/09/2020 start date 04/10/2020 continue as noted above <BRENDAN Patel - Last Filed: 04/10/20 14:12> Subjective Date/time seen: 04/10/20 08:22 Patient states that her breathing is better today. States the Robitussin that we gave her yesterday is working to help her cough. Patient did inform us that her sister's COVID test did turn positive. We discussed the likelihood of going home provided her demand for oxygen improves. Patient verbalized understanding with this. Patient has no more complaints this time. <BRENDAN Patel - Last Filed: 04/10/20 14:12> Review of Systems Constitutional: Constitutional: Reports no additional constitutional complaints <BRENDAN Patel - Last Filed: 04/10/20 14:12> Cardiovascular: Cardiovascular: Reports no additional cardiovascular complaints, Denies chest pain, Denies chest pain at rest and Denies chest pain with activity <BRENDAN Patel - Last Filed: 04/10/20 14:12> Respiratory: Comments: states this is improving <BRENDAN Patel - Last Filed: 04/10/20 14:12> Gastrointestinal: Gastrointestinal: Reports no additional gastrointestinal complaints <BRENDAN Patel - Last Filed: 04/10/20 14:12> Musculoskeletal: Musculoskeletal: Reports no additional m
[2020-04-10 08:34] LABS: Hematocrit 25.6 % (35.0-42.0); Hemoglobin 7.3 g/dL (11.7-13.8); Mean Corpuscular HGB Conc 28.5 g/dL (32.0-36.0); Mean Corpuscular Hemoglobin 21.2 pg (27.0-31.0); Mean Corpuscular Volume 74.2 fL (78.0-102.0); Mean Platelet Volume 9.7 fl (9.2-11.8); Platelet Count Result 549 K/mm3 (150-420); Red Blood Count 3.45 M/mm3 (4.20-5.40); Red Cell Distribution Width 15.2 % (11.6-14.4)
[2020-04-10 08:47] LABS: Anion Gap 10 mmol/L (8-16); Blood Urea Nitrogen 26 mg/dL (7-18); Calcium 8.7 mg/dL (8.5-10.1); Carbon Dioxide 24 mmol/L (21-32); Chloride 104 mmol/L (98-108); Estimated CRCL calculation 44 ml/min; Estimated Glomerular Filt Rate 47; Glucose 270 mg/dL (70-99); Osmolality Calculated 300 mOsm/kg (285-295); Potassium 4.8 mmol/L (3.5-5.1); Sodium 138 mmol/L (136-145)
[2020-04-10 12:00] VITALS: BP 128/53; PULSE 80; RESP 18; TEMP 36.6; O2SAT 94
[2020-04-10] MEDS: REMDESIVIR 100 MG/NS 250 ML 100 MG/250 ML BAG 250 MG IVPB (12:10)
--- NOTE | 2020-04-10 14:13 | PC.NURSE ---
gets winded easily with exertion. takes o2 off to go to be. spo2 falls in mid 70's. o2 @ 3 lpm per nc encouraged deep breathes brings spo2 back up to 92-94%.
--- NOTE | 2020-04-10 14:35 | PC.NURSE ---
tele stopped at this time.
[2020-04-10 16:00] VITALS: BP 153/53; PULSE 88; RESP 20; TEMP 36.6; O2SAT 95
[2020-04-10 20:00] VITALS: BP 118/73; PULSE 84; RESP 18; TEMP 36.8; O2SAT 94
[2020-04-11] VITALS (11 sets, daily range): BP systolic 133–151; BP diastolic 41–62; PULSE 54–64; RESP 18–20; TEMP 35.9–36.6; O2SAT 93–97
--- NOTE | 2020-04-11 01:25 | PC.NURSE ---
0015 Pt resting quietly in bed and doesnt voice any c/o shortness of breath or discomfort.
--- NOTE | 2020-04-11 02:22 | PC.NURSE ---
Pt asleep and no signs of respiratory distress noted.
--- NOTE | 2020-04-11 04:39 | PC.NURSE ---
Pt asleep and no signs of shortness of breath noted.
[2020-04-11 05:53] LABS: Hemoglobin 7.3 g/dL (11.7-13.8); Immature Platelet Fraction Pct 1.7 % (1.0-7.0); Mean Corpuscular HGB Conc 29.2 g/dL (32.0-36.0); Mean Corpuscular Hemoglobin 21.2 pg (27.0-31.0); Mean Corpuscular Volume 72.5 fL (78.0-102.0); Mean Platelet Volume 9.1 fl (9.2-11.8); Platelet Count Result 620 K/mm3 (150-420); Red Blood Count 3.45 M/mm3 (4.20-5.40); Red Cell Distribution Width 15.1 % (11.6-14.4); White Blood Count 10.1 K/mm3 (4.8-10.8)
[2020-04-11 06:07] LABS: Alanine Aminotransferase 19 U/L (14-59); Anion Gap 10 mmol/L (8-16); Blood Urea Nitrogen 28 mg/dL (7-18); Calcium 8.7 mg/dL (8.5-10.1); Carbon Dioxide 25 mmol/L (21-32); Chloride 102 mmol/L (98-108); Estimated CRCL calculation 42 ml/min; Estimated Glomerular Filt Rate 44; Glucose 261 mg/dL (70-99); Magnesium 2.5 mg/dL (1.8-2.4); Osmolality Calculated 298 mOsm/kg (285-295); Potassium 4.4 mmol/L (3.5-5.1); Sodium 137 mmol/L (136-145)
[2020-04-11] MEDS: ALBUTEROL SULFATE (*SP) INHALER 2 PUFF INHALATION ×4 (06:33→19:30)
--- NOTE | 2020-04-11 07:00 | PC.NURSE ---
0633 Pt given albuterol 2 puffs as ordered.
--- NOTE | 2020-04-11 08:13 | PM.IMPN ---
Progress Note: A&P Assessment and Plan (1) High blood pressure: Code(s): I10 - Essential (primary) hypertension Status: Acute Assessment and Plan: 04/08/2020 vital signs stable, continue to monitor vital signs, adjust medication as needed, continue lisinopril 40 mg p.o. daily 04/09/2020 vital signs stable,will continue medication and monitor patient 04/10/2020 vital signs stable, heart rate lower end of normal occasional upper end bradycardia, continue with regimen and monitoring 04/11/2020 vital signs stable, continue to monitor (2) Community acquired pneumonia: Code(s): J18.9 - Pneumonia, unspecified organism Status: Acute Assessment and Plan: 04/08/2020 patient states her breathing is improved since her stay, Supplemental oxygen for SP O2 92% or greater, azithromycin was stopped by pharmacy, continue with COVID medication regimen as noted below 04/09/2020 patient states her breathing has improved yet again today, her lungs do sound more clear, restarted azithromycin for 5 days in total starting today, continue with COVID regimen, white count is elevated likely due to COVID and steroid medication 04/10/2020 continue current regiment, patient admits improvement with breathing 04/11/2020 continue as noted above, patient admits improvement with breathing today (3) Elevated d-dimer: Code(s): R79.89 - Other specified abnormal findings of blood chemistry Status: Acute Assessment and Plan: 04/08/2020 CTA does not show PE per radiologist report, Eliquis this stopped due to COVID positive Lovenox started, will monitor respiratory status and vital signs Radiologist Impression: 1. Patent bilateral lower extremity veins. No evidence of deep venous thrombosis. 04/09/2020 breathing slowly improving, no new peripheral edema 04/10/2020 no change 04/11/2020 no changes (4) COVID-19 virus detected: Code(s): U07.1 - COVID-19 Status: Acute Assessment and Plan: 04/08/2020 continue Remdesivir and dexamethasone, monitor respiratory status and vital signs, supplemental oxygen as needed 04/09/2020 continue as above with addition of azithromycin for 5 days 04/09/2020 start date 04/10/2020 continue as noted above 04/11/2020 today's last dose of Remdesivir, continue with Azithromycin stop date 04/13/2020. (5) Anemia: Code(s): D64.9 - Anemia, unspecified Status: Acute Assessment and Plan: 04/11/2020 Today H/ H was 7.3/25, will be transfusing 1 unit PRBCs, will monitor patient and re-evaluate status thereafter Subjective Date/time seen: 04/11/20 08:13 Patient says she still feeling a little bit better today. She still looking forward to going home and recovering with her sister who she says has tested positive for COVID-19. Patient says she feels her breathing is a little better today than yesterday. She says her cough is improving but notes with deep breathing this triggers coughing. Patient denies any fevers, chills, muscle aches, body aches, nausea. Portable oxygen tank was placed in her room to allow her to walk to and from the restroom without the need to take her nasal cannula off. The patient says this is working well for her. Review of Systems Review of Systems: All systems reviewed & are unremarkable except as noted in HPI and below (and in subjective above) Exam Narrative: Exam Narrative: Discussed with patient her anemia status and that we will do an anemia workup and will be transfusing 1 unit PRBCs. We discussed her increased oxygen demand and relation to her anemia as well as her having COVID. Patient states she understood. Patient currently on 3 L nasal cannula with SpO2 94%. Const: General: cooperative, no acute distress, alert, awake and Physically active Orientation/consciousness: oriented to person, oriented to place and oriented to time Resp: Effort & Inspection: normal respiratory effort and Actively coughing dry (mostly with deep breathing) Ausculta
[2020-04-11] MEDS: ENOXAPARIN 40 MG/0.4 ML SYRINGE SUB-Q (09:18)
[2020-04-11] MEDS: DEXAMETHASONE 4 MG TABLET 6 MG PO (09:18)
[2020-04-11] MEDS: lisinopriL 20 MG TABLET 40 MG PO (09:18)
[2020-04-11] MEDS: AZITHROMYCIN 250 MG TABLET PO (09:18)
[2020-04-11] MEDS: PANTOPRAZOLE SODIUM IV 40 MG VIAL IV PUSH (09:19)
[2020-04-11] MEDS: SODIUM CHLORIDE 0.9% IV 250 ML 30 ML IV CONT (11:20)
[2020-04-11 12:03] LABS: Ferritin 100 ng/mL (8-252); Folic Acid 19.5 ng/mL (8.6->20); Iron 19 ug/dL (50-170); Percent Iron Saturation 6 % (12-57); Vitamin B12 904 pg/mL (193-986)
[2020-04-11 12:10] LABS: Thyroid Stimulating Hormone Reflex 0.34 u/IU/mL (0.36-3.74)
[2020-04-11 12:12] LABS: Free T4 Free Thyroxine Reflex 1.24 ng/dL (0.76-1.46)
[2020-04-11] MEDS: REMDESIVIR 100 MG/NS 250 ML 100 MG/250 ML BAG 250 MG IVPB (14:08)
[2020-04-11] MEDS: FUROSEMIDE INJ 40 MG/4 ML VIAL 20 MG IV PUSH (15:55)
--- NOTE | 2020-04-11 22:41 | PC.NURSE ---
Patient asleep. No apparent needs at this time. Call light in reach.
[2020-04-12] VITALS: BP 148/53; PULSE 57; RESP 20; TEMP 36; O2SAT 95
[2020-04-12 04:00] VITALS: BP 152/59; PULSE 48; RESP 18; TEMP 35.9; O2SAT 94
[2020-04-12 05:43] LABS: Hematocrit 30.1 % (35.0-42.0); Hemoglobin 9.1 g/dL (11.7-13.8); Immature Platelet Fraction Pct 1.7 % (1.0-7.0); Mean Corpuscular HGB Conc 30.2 g/dL (32.0-36.0); Mean Corpuscular Hemoglobin 22.5 pg (27.0-31.0); Mean Corpuscular Volume 74.5 fL (78.0-102.0); Mean Platelet Volume 8.9 fl (9.2-11.8); Platelet Count Result 658 K/mm3 (150-420); Red Blood Count 4.04 M/mm3 (4.20-5.40); Red Cell Distribution Width 17.2 % (11.6-14.4); White Blood Count 9.7 K/mm3 (4.8-10.8)
[2020-04-12 05:54] LABS: Anion Gap 7 mmol/L (8-16); Blood Urea Nitrogen 30 mg/dL (7-18); Calcium 8.7 mg/dL (8.5-10.1); Carbon Dioxide 27 mmol/L (21-32); Chloride 102 mmol/L (98-108); Estimated CRCL calculation 42 ml/min; Estimated Glomerular Filt Rate 44; Glucose 290 mg/dL (70-99); Osmolality Calculated 299 mOsm/kg (285-295); Potassium 4.8 mmol/L (3.5-5.1); Sodium 136 mmol/L (136-145)
[2020-04-12] MEDS: ALBUTEROL SULFATE (*SP) INHALER 2 PUFF INHALATION ×4 (06:27→19:48)
[2020-04-12 08:00] VITALS: BP 144/53; PULSE 58; RESP 18; TEMP 36.2; O2SAT 96
--- NOTE | 2020-04-12 08:11 | PM.IMPN ---
Progress Note: A&P Assessment and Plan (1) High blood pressure: Code(s): I10 - Essential (primary) hypertension Status: Acute Assessment and Plan: 04/08/2020 vital signs stable, continue to monitor vital signs, adjust medication as needed, continue lisinopril 40 mg p.o. daily 04/09/2020 vital signs stable,will continue medication and monitor patient 04/10/2020 vital signs stable, heart rate lower end of normal occasional upper end bradycardia, continue with regimen and monitoring 04/11/2020 vital signs stable, continue to monitor 04/12/2020 One time bradycardia this am rate 48 blood pressure stable, BP is a little high but stable (2) Community acquired pneumonia: Code(s): J18.9 - Pneumonia, unspecified organism Status: Acute Assessment and Plan: 04/08/2020 patient states her breathing is improved since her stay, Supplemental oxygen for SP O2 92% or greater, azithromycin was stopped by pharmacy, continue with COVID medication regimen as noted below 04/09/2020 patient states her breathing has improved yet again today, her lungs do sound more clear, restarted azithromycin for 5 days in total starting today, continue with COVID regimen, white count is elevated likely due to COVID and steroid medication 04/10/2020 continue current regiment, patient admits improvement with breathing 04/11/2020 continue as noted above, patient admits improvement with breathing today 04/12/2020 Continue with Azithromycin Stop date 04/13/2020 (3) Elevated d-dimer: Code(s): R79.89 - Other specified abnormal findings of blood chemistry Status: Acute Assessment and Plan: 04/08/2020 CTA does not show PE per radiologist report, Eliquis this stopped due to COVID positive Lovenox started, will monitor respiratory status and vital signs Radiologist Impression: 1. Patent bilateral lower extremity veins. No evidence of deep venous thrombosis. 04/09/2020 breathing slowly improving, no new peripheral edema 04/10/2020 no change 04/11/2020 no changes 04/12/2020 No PE or DVT per radiology report. (4) COVID-19 virus detected: Code(s): U07.1 - COVID-19 Status: Acute Assessment and Plan: 04/08/2020 continue Remdesivir and dexamethasone, monitor respiratory status and vital signs, supplemental oxygen as needed 04/09/2020 continue as above with addition of azithromycin for 5 days 04/09/2020 start date 04/10/2020 continue as noted above 04/11/2020 today's last dose of Remdesivir, continue with Azithromycin stop date 04/13/2020. 04/12/2020 Continue as above. Was informed that Pt's insurance will not pay for home oxygen even though this would likely be short term while the Pt recovers from her COVID infection. Will look into other options per case management. (5) Anemia: Code(s): D64.9 - Anemia, unspecified Status: Acute Assessment and Plan: 04/11/2020 Today H/ H was 7.3/25, will be transfusing 1 unit PRBCs, will monitor patient and re-evaluate status thereafter 04/12/2020 H/H increased to 9./.1, Ferrous Sulfate 324 mg BID added to regiment. Subjective Date/time seen: 04/12/20 08:11 Pt states that she is breathing better. She is able to walk to the restroom and back without much SOB. She is able to get a cleansing breath. She states she tolerated the blood transfusion well and has been able to breath better since. Pt has not other complaints at this time nor any questions. Review of Systems Review of Systems: All systems reviewed & are unremarkable except as noted in HPI and below Exam Narrative: Exam Narrative: Oxygen demand improved a little as we were able to go from 3 L/min to 2 L/min and SpO2 was maintained at 92%. Const: General: cooperative, healthy appearing, comfortable, no acute distress, alert, awake and Physically active Resp: Effort & Inspection: normal respiratory effort Auscultation: clear to auscultation bilaterally (slightly deminished in the bases. ) Other: still has increased
[2020-04-12] MEDS: ENOXAPARIN 40 MG/0.4 ML SYRINGE SUB-Q (08:59)
[2020-04-12] MEDS: DEXAMETHASONE 4 MG TABLET 6 MG PO (08:59)
[2020-04-12] MEDS: FERROUS SULFATE 324 MG TABLET PO ×2 (08:59→16:56)
[2020-04-12] MEDS: lisinopriL 20 MG TABLET 40 MG PO (08:59)
[2020-04-12] MEDS: AZITHROMYCIN 250 MG TABLET PO (08:59)
[2020-04-12] MEDS: PANTOPRAZOLE 40 MG TABLET PO (09:00)
[2020-04-12 12:00] VITALS: BP 135/54; PULSE 66; RESP 18; TEMP 36.5; O2SAT 94
[2020-04-12 15:24] VITALS: BP 151/55; PULSE 60; RESP 18; TEMP 36.6; O2SAT 92
--- NOTE | 2020-04-12 16:39 | PM.EVENT ---
Event Note Event Note Event Note: I have examined the patient and reviewed the charts. Discussed patient's care with Bill Correa APN and agree with his assessment and plan.
[2020-04-12 19:45] VITALS: BP 161/51; PULSE 62; RESP 18; TEMP 36.6; O2SAT 93
--- NOTE | 2020-04-12 21:00 | PC.NURSE ---
pt given malik crackers and fresh ice water, denies any other needs at this time
[2020-04-13] VITALS: BP 140/56; PULSE 57; RESP 20; TEMP 36.1; O2SAT 93
--- NOTE | 2020-04-13 02:42 | PC.NURSE ---
pt sleeping, respirations even and regular, no evidence of distress noted
[2020-04-13 04:55] VITALS: BP 144/52; PULSE 50; RESP 18; TEMP 36.2; O2SAT 94
--- NOTE | 2020-04-13 05:15 | PC.NURSE ---
oxygen removed per weaning orders, will assess o2 levels again, pt advised to call if she begins to feel sob or any other symptoms, pt verbalized understanding
[2020-04-13] MEDS: ALBUTEROL SULFATE (*SP) INHALER 2 PUFF INHALATION ×2 (05:39→11:08)
[2020-04-13 08:00] VITALS: BP 137/49; PULSE 62; RESP 18; TEMP 36.3; O2SAT 90
[2020-04-13] MEDS: FERROUS SULFATE 324 MG TABLET PO (09:15)
[2020-04-13] MEDS: PANTOPRAZOLE 40 MG TABLET PO (09:15)
[2020-04-13] MEDS: AZITHROMYCIN 250 MG TABLET PO (09:15)
[2020-04-13] MEDS: lisinopriL 20 MG TABLET 40 MG PO (09:15)
[2020-04-13] MEDS: DEXAMETHASONE 4 MG TABLET 6 MG PO (09:15)
[2020-04-13] MEDS: ENOXAPARIN 40 MG/0.4 ML SYRINGE SUB-Q (09:15)
[2020-04-13 09:29] VITALS: O2SAT 93
[2020-04-13 09:47] LABS: Hemoglobin 9.9 g/dL (11.7-13.8); Mean Corpuscular Hemoglobin 22.5 pg (27.0-31.0); Mean Platelet Volume 9.4 fl (9.2-11.8); Platelet Count Result 686 K/mm3 (150-420); Red Cell Distribution Width 17.7 % (11.6-14.4); White Blood Count 12.6 K/mm3 (4.8-10.8)
[2020-04-13 09:59] LABS: Anion Gap 8 mmol/L (8-16); Blood Urea Nitrogen 27 mg/dL (7-18); Calcium 8.8 mg/dL (8.5-10.1); Carbon Dioxide 26 mmol/L (21-32); Chloride 100 mmol/L (98-108); Estimated CRCL calculation 48 ml/min; Estimated Glomerular Filt Rate 51; Glucose 254 mg/dL (70-99); Osmolality Calculated 292 mOsm/kg (285-295); Potassium 3.9 mmol/L (3.5-5.1); Sodium 134 mmol/L (136-145)
[2020-04-13 10:07] LABS: Magnesium 2.3 mg/dL (1.8-2.4)
--- NOTE | 2020-04-13 11:14 | PM.DS ---
DS: Admitting Diagnosis Admitting Diagnosis Admitting Diagnosis: COVID-19 Positive, HTN, Pneumonia, Elevated D-dimer, Anemia DS: Discharge Diagnosis Discharge Diagnosis (1) High blood pressure: Code(s): I10 - Essential (primary) hypertension Status: Acute Assessment and Plan: 04/08/2020 vital signs stable, continue to monitor vital signs, adjust medication as needed, continue lisinopril 40 mg p.o. daily 04/09/2020 vital signs stable,will continue medication and monitor patient 04/10/2020 vital signs stable, heart rate lower end of normal occasional upper end bradycardia, continue with regimen and monitoring 04/11/2020 vital signs stable, continue to monitor 04/12/2020 One time bradycardia this am rate 48 blood pressure stable, BP is a little high but stable 04/13/2020 blood pressure runs high once in a while but stable, follow-up with PCP within a week (2) Community acquired pneumonia: Code(s): J18.9 - Pneumonia, unspecified organism Status: Acute Assessment and Plan: 04/08/2020 patient states her breathing is improved since her stay, Supplemental oxygen for SP O2 92% or greater, azithromycin was stopped by pharmacy, continue with COVID medication regimen as noted below 04/09/2020 patient states her breathing has improved yet again today, her lungs do sound more clear, restarted azithromycin for 5 days in total starting today, continue with COVID regimen, white count is elevated likely due to COVID and steroid medication 04/10/2020 continue current regiment, patient admits improvement with breathing 04/11/2020 continue as noted above, patient admits improvement with breathing today 04/12/2020 Continue with Azithromycin Stop date 04/13/2020 04/13/2020 respiratory status has steadily improved, I had her on 1.5 liters/minute oxygen and her sats were 92% (3) Elevated d-dimer: Code(s): R79.89 - Other specified abnormal findings of blood chemistry Status: Acute Assessment and Plan: 04/08/2020 CTA does not show PE per radiologist report, Eliquis this stopped due to COVID positive Lovenox started, will monitor respiratory status and vital signs Radiologist Impression: 1. Patent bilateral lower extremity veins. No evidence of deep venous thrombosis. 04/09/2020 breathing slowly improving, no new peripheral edema 04/10/2020 no change 04/11/2020 no changes 04/12/2020 No PE or DVT per radiology report. (4) COVID-19 virus detected: Code(s): U07.1 - COVID-19 Status: Acute Assessment and Plan: 04/08/2020 continue Remdesivir and dexamethasone, monitor respiratory status and vital signs, supplemental oxygen as needed 04/09/2020 continue as above with addition of azithromycin for 5 days 04/09/2020 start date 04/10/2020 continue as noted above 04/11/2020 today's last dose of Remdesivir, continue with Azithromycin stop date 04/13/2020. 04/12/2020 Continue as above. Was informed that Pt's insurance will not pay for home oxygen even though this would likely be short term while the Pt recovers from her COVID infection. Will look into other options per case management. 04/13/2020 patient has improved, home oxygen concentrator was secured by staff and the patient, patient will be able to go home and continue to recover, close follow-up with primary care provider (5) Anemia: Code(s): D64.9 - Anemia, unspecified Status: Acute Assessment and Plan: 04/11/2020 Today H/ H was 7.3/25, will be transfusing 1 unit PRBCs, will monitor patient and re-evaluate status thereafter 04/12/2020 H/H increased to 9.1/30.1, Ferrous Sulfate 324 mg BID added to regiment. 04/13/2020 H&H increased to 9.9/33, will continue ferrous sulfate on discharge DS: Summary Time Spent with Patient Time attestation: Total time spent providing and/or coordinating discharge services:< 30 minutes Exam Const: General: cooperative, comfortable, no acute distress, alert, awake and Physically active Nutritional Appearance: we
[2020-04-15 15:05] LABS: Transferrin 259 mg/dL (188-341)
--- NOTE | 2020-04-19 22:47 | PC.NURSE ---
late note, Ceftriaxone 1gm done 1004/06/2020; NS 1 liter done 2004/06/2020
== END 2020-04-13 15:10 | disposition home or self-care (01) | DRG 177 ==
LOC: CHSED 21:11 → CHS2ND 04-06 00:53
PROVIDERS: Nurse Practitioner; Nurse Practitioner Family; Admitting Provider Emergency Medicine; Emergency Provider Emergency Medicine; PCP Internal Medicine; Visit Provider Emergency Medicine
DX: U07.1 COVID-19 (principal); J12.89 Other viral pneumonia; R09.02 Hypoxemia; D64.9 Anemia, unspecified; I10 Essential (primary) hypertension; M79.605 Pain in left leg; M79.604 Pain in right leg; R53.83 Other fatigue
CPT/HCPCS: 36415; 36430; 36600; 71045; 71275; 80048; 80053; 81001; 82375; 82550; 82607; 82728; 82746; 82805; 83050; 83540; 83550; 83605; 83735; 83880; 84439; 84443; 84460; 84466; 84484; 85025; 85027; 85055; 85380; 85610; 85730; 86140; 86850; 86900; 86901; 86920; 87040; 87086; 88309; 93005; 93970; 96365; 99285; A9270; C9113; J0456; J0696; J1100; J1650; J1940; J7030; J7040; J7050; J7060; J8540; P9016; Q9965

== ENCOUNTER 2020-04-26 08:46 | Outpatient (CLI) | payer OTHER, SELFPAY ==
[2020-04-26 09:10] LABS: Basophils Absolute Auto 0.06 K/mm3 (0.00-0.10); Eosinophils Absolute Auto 0.29 K/mm3 (0.02-0.50); Eosinophils Percent Auto 4.7 % (1.0-6.0); Hematocrit 36.6 % (35.0-42.0); Hemoglobin 10.9 g/dL (11.7-13.8); Immature Granulocyte Absolute 0.01 K/mm3 (0.00-0.00); Immature Granulocyte Percent A 0.2 % (0.0-0.0); Lymphocytes Absolute Auto 2.02 K/mm3 (1.10-4.50); Lymphocytes Percent Auto 32.5 % (18.0-42.0); Mean Corpuscular HGB Conc 29.8 g/dL (32.0-36.0); Mean Corpuscular Hemoglobin 23.3 pg (27.0-31.0); Mean Corpuscular Volume 78.4 fL (78.0-102.0); Mean Platelet Volume 9.7 fl (9.2-11.8); Monocytes Absolute Auto 0.53 K/mm3 (0.10-0.90); Monocytes Percent Auto 8.5 % (2.0-11.0); Neutrophils Absolute Auto 3.3 K/mm3 (1.7-7.2); Neutrophils Percent Auto 53.1 % (50.0-70.0); Platelet Count Result 273 K/mm3 (150-420); Red Blood Count 4.67 M/mm3 (4.20-5.40); Red Cell Distribution Width 21.1 % (11.6-14.4); White Blood Count 6.2 K/mm3 (4.8-10.8)
[2020-04-26 09:46] LABS: Anion Gap 8 mmol/L (8-16); Blood Urea Nitrogen 18 mg/dL (7-18); Calcium 9.3 mg/dL (8.5-10.1); Carbon Dioxide 28 mmol/L (21-32); Chloride 103 mmol/L (98-108); Estimated Glomerular Filt Rate 44; Glucose 194 mg/dL (70-99); Iron 50 ug/dL (50-170); Osmolality Calculated 294 mOsm/kg (285-295); Percent Iron Saturation 13 % (12-57); Potassium 4.1 mmol/L (3.5-5.1); Sodium 139 mmol/L (136-145)
== END 2020-04-26 08:47 | disposition home or self-care (01) ==
LOC: CHSLAB 08:50
PROVIDERS: PCP Internal Medicine
DX: D64.9 Anemia, unspecified (principal); U07.1 COVID-19; J12.89 Other viral pneumonia
CPT/HCPCS: 36415; 80048; 83540; 83550; 85025

== ENCOUNTER 2020-05-25 08:12 | Outpatient (CLI) | payer OTHER, SELFPAY ==
--- NOTE | ~2020-05-25 | XR_ITS ---
EXAMINATION: XR chest 2V EXAM DATE: 05/25/2020 08:37 INDICATION: Pneumonia due to COVID. TECHNIQUE: Frontal and lateral projections of the chest obtained and reviewed. Comparison is made to prior examination from 04/05/2020. FINDINGS: The lungs are clear. There are no pleural effusions. The cardiomediastinal silhouette is within normal limits. There is no pneumothorax suspected. The bones and soft tissues are unremarkab le. IMPRESSION: Resolution of previously seen basilar airspace disease. Reviewed, dictated and finalized at location [facility]. [facility]
[2020-05-25 08:41] LABS: Hemoglobin A1C 7.4 % (<5.7)
[2020-05-25 08:46] LABS: Creatinine Urine 158.05 mg/dL (40-278)
[2020-05-25 09:07] LABS: MALB Creatinine Ratio 189.1 mg/g (0-30); Microalbumin Urine Random 298.9 mg/L
[2020-05-25 09:21] LABS: Alanine Aminotransferase 28 U/L (14-59); Alkaline Phosphatase 85 U/L (46-116); Anion Gap 8 mmol/L (8-16); Aspartate Amino Transferase 23 U/L (15-37); Bilirubin,Total 0.6 mg/dL (0.00-1.00); Blood Urea Nitrogen 16 mg/dL (7-18); Calcium 9.3 mg/dL (8.5-10.1); Carbon Dioxide 30 mmol/L (21-32); Chloride 103 mmol/L (98-108); Cholesterol 204 mg/dL (0-200); Estimated Glomerular Filt Rate 46; Glucose 159 mg/dL (70-99); HDL Direct 76 mg/dL (40-60); LDL Cholesterol Calculated 114 mg/dL (<130); Osmolality Calculated 296 mOsm/kg (285-295); Potassium 4.5 mmol/L (3.5-5.1); Sodium 141 mmol/L (136-145); Total Protein 7.2 g/dL (6.4-8.2); Triglycerides 68 mg/dL (0-150)
== END 2020-05-25 08:13 | disposition home or self-care (01) ==
LOC: CHSLAB 08:19
PROVIDERS: PCP Internal Medicine; Visit Provider Internal Medicine
DX: U07.1 COVID-19 (principal); J12.89 Other viral pneumonia; R73.02 Impaired glucose tolerance (oral); E78.5 Hyperlipidemia, unspecified
CPT/HCPCS: 36415; 71046; 80053; 80061; 82043; 83036

== ENCOUNTER 2021-01-17 09:45 | Outpatient (CLI) | payer OTHER, SELFPAY ==
[2021-01-17 10:04] LABS: Basophils Absolute Auto 0.08 K/mm3 (0.00-0.10); Basophils Percent Auto 0.8 % (0.0-1.0); Eosinophils Absolute Auto 0.24 K/mm3 (0.02-0.50); Eosinophils Percent Auto 2.4 % (1.0-6.0); Hematocrit 43.2 % (35.0-42.0); Hemoglobin 14.1 g/dL (11.7-13.8); Immature Granulocyte Absolute 0.06 K/mm3 (0.00-0.00); Immature Granulocyte Percent A 0.6 % (0.0-0.0); Lymphocytes Absolute Auto 2.62 K/mm3 (1.10-4.50); Lymphocytes Percent Auto 26.4 % (18.0-42.0); Mean Corpuscular HGB Conc 32.6 g/dL (32.0-36.0); Mean Corpuscular Hemoglobin 26.5 pg (27.0-31.0); Mean Corpuscular Volume 81.1 fL (78.0-102.0); Mean Platelet Volume 9.8 fl (9.2-11.8); Monocytes Absolute Auto 0.94 K/mm3 (0.10-0.90); Monocytes Percent Auto 9.5 % (2.0-11.0); Neutrophils Percent Auto 60.3 % (50.0-70.0); Platelet Count Result 361 K/mm3 (150-420); Red Blood Count 5.33 M/mm3 (4.20-5.40); Red Cell Distribution Width 14.1 % (11.6-14.4); White Blood Count 9.9 K/mm3 (4.8-10.8)
[2021-01-17 10:18] LABS: Creatinine Urine 143.12 mg/dL (40-278); MALB Creatinine Ratio 52.7 mg/g (0-30); Microalbumin Urine Random 75.5 mg/L
[2021-01-17 10:30] LABS: Alanine Aminotransferase 33 U/L (14-59); Albumin Level 3.9 g/dL (3.4-5.0); Alkaline Phosphatase 122 U/L (46-116); Anion Gap 10 mmol/L (8-16); Aspartate Amino Transferase 30 U/L (15-37); Bilirubin,Total 0.7 mg/dL (0.00-1.00); Blood Urea Nitrogen 31 mg/dL (7-18); Calcium 9.4 mg/dL (8.5-10.1); Carbon Dioxide 29 mmol/L (21-32); Chloride 100 mmol/L (98-108); Cholesterol 184 mg/dL (0-200); Estimated Glomerular Filt Rate 41; Ferritin 38 ng/mL (8-252); Glucose 202 mg/dL (70-99); HDL Direct 75 mg/dL (40-60); LDL Cholesterol Calculated 92 mg/dL (<130); Osmolality Calculated 300 mOsm/kg (285-295); Potassium 4.2 mmol/L (3.5-5.1); Sodium 139 mmol/L (136-145); Total Protein 7.4 g/dL (6.4-8.2); Triglycerides 84 mg/dL (0-150)
[2021-01-17 10:44] LABS: Hemoglobin A1C 7.7 % (<5.7)
== END 2021-01-17 09:46 | disposition home or self-care (01) ==
LOC: CHSLAB 09:49
PROVIDERS: PCP Internal Medicine; Visit Provider Internal Medicine
DX: D50.9 Iron deficiency anemia, unspecified (principal); R73.02 Impaired glucose tolerance (oral); E78.2 Mixed hyperlipidemia
CPT/HCPCS: 36415; 80053; 80061; 82043; 82728; 83036; 85025

== ENCOUNTER 2022-01-24 09:01 | Outpatient (CLI) | payer OTHER, SELFPAY ==
[2022-01-24 09:31] LABS: Hemoglobin A1C 7.8 % (<5.7)
[2022-01-24 09:35] LABS: Creatinine Urine 228.39 mg/dL (40-278)
[2022-01-24 09:36] LABS: MALB Creatinine Ratio 86.6 mg/g (0-30)
[2022-01-24 09:40] LABS: Alanine Aminotransferase 31 U/L (14-59); Albumin Level 3.8 g/dL (3.4-5.0); Alkaline Phosphatase 105 U/L (46-116); Anion Gap 8 mmol/L (8-16); Aspartate Amino Transferase 25 U/L (15-37); Bilirubin,Total 0.7 mg/dL (0.00-1.00); Blood Urea Nitrogen 14 mg/dL (7-18); Calcium 9.3 mg/dL (8.5-10.1); Carbon Dioxide 28 mmol/L (21-32); Chloride 106 mmol/L (98-108); Cholesterol 199 mg/dL (0-200); Estimated Glomerular Filt Rate 47; Glucose 144 mg/dL (70-99); HDL Direct 65 mg/dL (40-60); LDL Cholesterol Calculated 118 mg/dL (<130); Osmolality Calculated 297 mOsm/kg (285-295); Potassium 4.4 mmol/L (3.5-5.1); Sodium 142 mmol/L (136-145); Total Protein 6.9 g/dL (6.4-8.2); Triglycerides 82 mg/dL (0-150)
== END 2022-01-24 09:02 | disposition home or self-care (01) ==
LOC: CHSLAB 09:03
PROVIDERS: PCP Internal Medicine; Visit Provider Internal Medicine
DX: R73.02 Impaired glucose tolerance (oral) (principal); E78.2 Mixed hyperlipidemia; Z00.00 Encounter for general adult medical examination without abnormal findings
CPT/HCPCS: 36415; 80053; 80061; 82043; 83036

== ENCOUNTER 2022-04-06 14:00 | Outpatient (RCR) | payer OTHER, SELFPAY ==
--- NOTE | 2022-04-06 15:16 | PTOPEVAL1 ---
Assessment and note entered by Magnus Booker Evaluation Information Assessment Status Evaluation Diagnosis patellar/quad tendon repair Subjective Information Pt. reports that on 03/04/22 she got her shoe stuck at work. She reports that she underwent surgery on 03/11/22. She states that she has not been doing any exercise. She reports having a knee brace locked in extension, but has trouble keeping the brace in position. She reports she works for [employer] and has been working from home. She cannot currently drive and is walking short distance with a walker and her brace. She reports that her goal for therapy is to return to walking normal and return to driving. Reported Pain Level Pain Score 0: Self Report Assessment PT Clinical Summary Pt. is a 76 year old female who enters the clinc almost 4 weeks post quad tendon repair. She presents with impaired gait, impaired l.e. strength, impaired ROM and functional decline. Continued treatment is indicated in order to improve these areas to allow the pt. to be able to return to normal work related activities without limitation. Plan of Care Interventions Electrical Stimulation,Hot Pack/Cold Pack,Manual Therapy,Neuro Re-education,Therapeutic Activities, Therapeutic Exercise PT Services Indicated Yes Treatment Frequency and 2x/week x 10 visits Duration These treatments will address the objective and functional deficits as defined above. The patient will be advanced safely and appropriately in order for the patient to progress towards his/her prior level of function. Additional exercises will be introduced and as well as a comprehensive home exercise program upon discharge, if needed, ?to ensure carryover of functional gains achieved in the clinic. This treatment plan has been reviewed and agreement upon by the patient.
--- NOTE | 2022-05-07 15:59 | PTOPPROG ---
Assessment and note entered by Amna Davila, PT Evaluation Information Assessment Status Progress Diagnosis s/p R patellar/quadriceps tendon repair Onset 03/11/22 Subjective Information Annie reports her right knee is doing well overall . She is reporting 0/10 pain now and reports that surgical pain has resolved. She occasionally has pain rated 3/10 at worst after prolonged sitting due to OA. 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 She feels she has improved 80% since her surgery. Assessment PT Clinical Summary Annie Virgen has completed 10 skilled PT visits following a right patellar/quadriceps tendon repair performed on 03/11/22. She is reporting overall improvements with ability to perform ADLs and desk work. 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 She objectively demonstrates improved right knee AROM, improved R LE strength, and improved gait. She continues to have deficits in right knee flexion AROM, right hip and knee strength, gait, balance, and functional strength for stair negotiation. She was progressed to phase 3 out of 6 of her protocol on 04/23/22. She will continue to benefit from skilled PT to further address ongoing physical and functional limitations. Plan of Care Interventions Gait Training,Hot Pack/Cold Pack,Intermittent Compression,Neuro Re-education,Patient/Caregiver Educati,Therapeutic Activities,Therapeutic Exercise PT Services Indicated Yes Treatment Frequency and 2 times a week for 8 visits Duration These treatments will address the objective and functional deficits as defined above. The patient will be advanced safely and appropriately in order for the patient to progress towards his/her prior level of function. Additional exercises will be introduced and as well as a comprehensive home exercise program upon discharge, if needed, ?to ensure carryover of functional gains achieved in the clinic. This treatment plan has been reviewed and agreement upon by the patient.
--- NOTE | 2022-06-08 16:09 | PTOPEVAL1 ---
Assessment and note entered by Magnus Booker Evaluation Information Assessment Status Discharge Diagnosis s/p R patellar/quadriceps tendon repair Onset 03/11/22 Subjective Information Pt. reports that her right knee is doing better. She reports she has returned to driving. She states that her knee pain is mild. She reports that she still notices some stiffness, but continues to complete exercise at home. At this time pt. reports that she is ready for discharge. Reported Pain Level Pain Score 0: Self Report Assessment PT Clinical Summary Pt. has met all goals established at the initial evaluation. She remains mildly stiff into knee flexion, but movement allows for adequate completion of all IADL's. Pt. will be discharged from our care at this time. Plan of Care Treatment Frequency and D/C from PT to an independent HEP. Duration These treatments will address the objective and functional deficits as defined above. The patient will be advanced safely and appropriately in order for the patient to progress towards his/her prior level of function. Additional exercises will be introduced and as well as a comprehensive home exercise program upon discharge, if needed, ?to ensure carryover of functional gains achieved in the clinic. This treatment plan has been reviewed and agreement upon by the patient.
== END 2022-06-08 17:00 | disposition still patient (30) ==
LOC: CHSPT 14:00
PROVIDERS: Visit Provider Orthopaedic Surgery Sports Medicine
DX: Z98.890 Other specified postprocedural states (principal)
CPT/HCPCS: 97016; 97110; 97161; 97530

== ENCOUNTER 2022-06-22 15:53 | Outpatient (RCR) | payer OTHER, SELFPAY ==
--- NOTE | 2022-06-24 17:22 | PTOPEVAL1 ---
Assessment and note entered by Magnus Booker Evaluation Information Assessment Status Progress Diagnosis right patellar/quadriceps tendon repair Onset 03/11/22 Subjective Information Pt. reports she followed up with her doctor recently. She states that he requested that she continue with therapy to improve mobility and strength. She reports she has no pain. She states that she still has some stiffness and notices some difficulty with steps. These treatments will address the objective and functional deficits as defined above. The patient will be advanced safely and appropriately in order for the patient to progress towards his/her prior level of function. Additional exercises will be introduced and as well as a comprehensive home exercise program upon discharge, if needed, ?to ensure carryover of functional gains achieved in the clinic. This treatment plan has been reviewed and agreement upon by the patient.
--- NOTE | 2022-07-09 17:40 | PTOPDC ---
Assessment and note entered by Suze Bowen DPT Evaluation Information Assessment Status Discharge Diagnosis right patellar/quadriceps tendon repair Onset 03/11/22 Subjective Information Pt reports she saw her MD and has been released. She has not been having pain recently and is really happy with her progress so far. She returned to work today and reports no problems from this. She is comfortable discharging to independent HEP at this time. Reported Pain Level Pain Score 0: Self Report Assessment PT Clinical Summary Pt presents to PT with significant improvements in R leg pain, strength, range of motion, and gait pattern since her initial evaluation. She has been able to return to most functional and recreational activities without any pain or significant difficulty. She still demonstrates lateral hip/glute med weakness, accompanied by a R trendelenburg gait, and she was educated on the importance of continuing her HEP with a focus on strengthening these muscles. She was also educated on the importance of continuing her current activity level to further maintain her improvements with PT. She is to be discharged at this time and is to follow-up as needed regarding her POC. Plan of Care PT Services Indicated No
== END 2022-07-09 13:16 | disposition home or self-care (01) ==
LOC: CHSPT 15:53
PROVIDERS: Visit Provider Orthopaedic Surgery Sports Medicine
DX: Z47.89 Encounter for other orthopedic aftercare (principal); Z48.89 Encounter for other specified surgical aftercare; Z98.890 Other specified postprocedural states
CPT/HCPCS: 97110; 97112

== ENCOUNTER 2023-02-06 07:29 | Outpatient (CLI) | payer OTHER, SELFPAY ==
[2023-02-06 08:11] LABS: Hemoglobin A1C 9.6 % (<5.7)
[2023-02-06 08:15] LABS: Creatinine Urine 170.22 mg/dL (40-278)
[2023-02-06 08:49] LABS: Alanine Aminotransferase 66 U/L (14-59); Albumin Level 3.8 g/dL (3.4-5.0); Alkaline Phosphatase 140 U/L (46-116); Anion Gap 9 mmol/L (8-16); Aspartate Amino Transferase 41 U/L (15-37); Bilirubin,Total 0.8 mg/dL (0.00-1.00); Blood Urea Nitrogen 17 mg/dL (7-18); Calcium 9.2 mg/dL (8.5-10.1); Carbon Dioxide 30 mmol/L (21-32); Chloride 101 mmol/L (98-108); Cholesterol 190 mg/dL (0-200); Estimated Glomerular Filt Rate 54; Glucose 259 mg/dL (70-99); HDL Direct 64 mg/dL (40-60); LDL Cholesterol Calculated 110 mg/dL (<130); Osmolality Calculated 300 mOsm/kg (285-295); Potassium 4.5 mmol/L (3.5-5.1); Sodium 140 mmol/L (136-145); Total Protein 7.6 g/dL (6.4-8.2); Triglycerides 81 mg/dL (0-150)
[2023-02-06 09:03] LABS: MALB Creatinine Ratio 66.5 mg/g (0-30); Microalbumin Urine Random 113.2 mg/L
[2023-02-09 18:18] LABS: Vitamin D 25 Hydroxy 23 ng/mL (30-100)
== END 2023-02-06 07:30 | disposition home or self-care (01) ==
PROVIDERS: PCP Internal Medicine; Visit Provider Internal Medicine
DX: E11.59 Type 2 diabetes mellitus with other circulatory complications (principal); I15.2 Hypertension secondary to endocrine disorders; E78.2 Mixed hyperlipidemia; E11.69 Type 2 diabetes mellitus with other specified complication; E78.5 Hyperlipidemia, unspecified; E55.9 Vitamin D deficiency, unspecified
CPT/HCPCS: 36415; 80053; 80061; 82043; 82306; 83036

== ENCOUNTER 2023-03-03 21:00 | Emergency (ER) | payer OTHER, SELFPAY ==
[2023-03-03 21:05] VITALS: BP 199/97; PULSE 122; RESP 18; TEMP 36.6; O2SAT 98
--- NOTE | 2023-03-03 21:11 | ED.WEAKNESS ---
HPI - Weakness General Chief complaint: Unspecified Stated complaint: Fatigue Source: patient Mode of arrival: ambulatory Limitations: no limitations History of Present Illness HPI Narrative: 77-year-old female with a history of hypertension, diabetes mellitus, indeed have presents to the ER with -- generalized weakness and tiredness. Her symptoms started 10 days ago. She went to [facility] 1 week ago and had blood work. The patient subsequently has felt worsening weakness/ tiredness. No focal neuro deficits. no chest pain or shortness of breath, No nausea/ vomiting. MD Complaint: generalized weakness Onset (ago): day(s) Duration: constant Location: generalized Severity: mild Relieving factors: none Exacerbating factors: none Associated symptoms: denies other symptoms Related Data Home Medications Medication Instructions Recorded Confirmed ferrous sulfate 325 mg PO DAILY 03/03/23 03/03/23 losartan 100 100 tablet PO DAILY 03/03/23 03/03/23 mg-hydrochlorothiazide 12.5 mg tablet metformin 500 mg tablet,extended 500 mg PO DAILY 03/03/23 03/03/23 release 24 hr Allergies Allergy/AdvReac Type Severity Reaction Status Date / Time Penicillins Allergy hives Verified 08/31/22 13:12 Review of Systems Review of Systems: All systems reviewed & are unremarkable except as noted in HPI and below Constitutional: Constitutional: Reports as per HPI and Reports no additional constitutional complaints Eyes: Eyes: Reports as per HPI and Reports no additional eye complaints ENT: Reports system reviewed and no additional complaints, except as documented and Reports as per HPI Cardiovascular: Cardiovascular: Reports as per HPI and Reports no additional cardiovascular complaints Respiratory: Respiratory: Reports as per HPI and Reports no additional respiratory complaints Gastrointestinal: Gastrointestinal: Reports as per HPI and Reports no additional gastrointestinal complaints Genitourinary: Genitourinary: Reports no additional female genitourinary complaints and Reports as per HPI Musculoskeletal: Musculoskeletal: Reports no additional musculoskeletal complaints and Reports as per HPI Integumentary/Breasts: Skin/Breast: Reports system reviewed and no additional complaints, except as docu and Reports as per HPI Neurologic: Reports system reviewed and no additional complaints, except as documented Psychiatric: Psychiatric: Reports no additional psychiatric complaints and Reports as per HPI Endocrine: Endocrine: Reports no additional endocrine complaints and Reports as per HPI Hematologic/Lymphatic: Hematologic/Lymphatic: Reports no additional hematologic/lymphatic complaints and Reports as per HPI Allergic/Immunologic: Allergic/Immunologic: Reports no additional allergic/immunologic complaints and Reports as per HPI [facility] Past Medical History Medical History (Updated 03/03/23 @ 22:35 by Donavan Irving MD) High blood pressure Surgical History Surgical History History of cataract surgery Family History Family History Father Cerebrovascular accident Mother Hypertension Heart disease Sibling Hypertension Social History Social History Smoking status: Never smoker Alcohol intake: current Substance use: never Substance use type: does not use Lack of Transportation: No Lack of Food: Never True Current Housing: I Have Housing Concerned About Future Housing: No Difficulty Paying Gas/Electric Bills: No Difficulty Paying for Meds: No Currently Unemployed: No Education: High School Diploma/GED Difficulty w/ Childcare or Family Care: No Living arrangements: with family Occupation/Education: occupation 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 Gender i
[2023-03-03 21:20] VITALS: BP 199/97; PULSE 91; RESP 18; O2SAT 96
--- NOTE | 2023-03-03 21:23 | ECG_ITS ---
Measurements Intervals [place] Rate: 87 P: 31 MA: 177 QRS: 10 QRSD: 97 T: 69 QT: 319 QTc: 385 Interpretive Statements SINUS RHYTHM LEFT VENTRICULAR HYPERTROPHY AND ST-T CHANGE [VOLTAGE CRITERIA PLUS ST/T ABNORMALITY] COMPARED TO ECG 04/05/2020 21:50:49 NO SIGNIFICANT CHANGES Electronically Signed On 03-04-2023 11:11:43 CDT by Sylwia Smith M.D.
[2023-03-03 21:39] LABS: Basophils Absolute Auto 0.05 K/mm3 (0.00-0.10); Basophils Percent Auto 0.6 % (0.0-1.0); Eosinophils Absolute Auto 0.18 K/mm3 (0.02-0.50); Eosinophils Percent Auto 2.1 % (1.0-6.0); Hematocrit 27.9 % (35.0-42.0); Hemoglobin 8.7 g/dL (11.7-13.8); Immature Granulocyte Absolute 0.03 K/mm3 (0.00-0.00); Immature Granulocyte Percent A 0.3 % (0.0-0.0); Lymphocytes Absolute Auto 2.15 K/mm3 (1.10-4.50); Lymphocytes Percent Auto 24.9 % (18.0-42.0); Mean Corpuscular HGB Conc 31.2 g/dL (32.0-36.0); Mean Corpuscular Hemoglobin 27.8 pg (27.0-31.0); Mean Corpuscular Volume 89.1 fL (78.0-102.0); Mean Platelet Volume 9.2 fl (9.2-11.8); Monocytes Absolute Auto 0.65 K/mm3 (0.10-0.90); Monocytes Percent Auto 7.5 % (2.0-11.0); Neutrophils Absolute Auto 5.6 K/mm3 (1.7-7.2); Neutrophils Percent Auto 64.6 % (50.0-70.0); Platelet Count Result 363 K/mm3 (150-420); Red Blood Count 3.13 M/mm3 (4.20-5.40); Red Cell Distribution Width 14.1 % (11.6-14.4); White Blood Count 8.7 K/mm3 (4.8-10.8)
[2023-03-03 21:51] LABS: INR 0.9; Prothrombin Time 10.2 Seconds (9.50-12.10)
[2023-03-03 21:57] LABS: Lactic Acid Reflex 2.1 mmol/L (0.4-2.0)
[2023-03-03 22:00] VITALS: BP 134/57; PULSE 93; RESP 14; O2SAT 97
[2023-03-03 22:04] LABS: Alanine Aminotransferase 27 U/L (14-59); Albumin Level 3.5 g/dL (3.4-5.0); Alkaline Phosphatase 118 U/L (46-116); Anion Gap 7 mmol/L (8-16); Aspartate Amino Transferase 37 U/L (15-37); Bilirubin,Total 0.4 mg/dL (0.00-1.00); Blood Urea Nitrogen 21 mg/dL (7-18); Calcium 9.2 mg/dL (8.5-10.1); Carbon Dioxide 30 mmol/L (21-32); Chloride 100 mmol/L (98-108); Estimated CRCL calculation 39 ml/min; Estimated Glomerular Filt Rate 43; Glucose 244 mg/dL (70-99); Lipase 37 U/L (16-77); NT Pro B Type Natriuretic Pept 175 pg/mL (0-450); Osmolality Calculated 295 mOsm/kg (285-295); Potassium 3.8 mmol/L (3.5-5.1); Sodium 137 mmol/L (136-145); Thyroid Stimulating Hormone 4.99 uIU/mL (0.36-3.74); Troponin I 13.1 ng/L (0.00-60.4)
[2023-03-03 22:32] VITALS: BP 124/94; PULSE 76; RESP 14; O2SAT 97
--- NOTE | 2023-03-03 22:34 | PC.NURSE ---
2220-DIRECTOR MEDICARE SALES AT BEDSIDE. PT NOTED TO BE SPEAKING WITH FAMILY MEMBER. DIRECTOR MEDICARE SALES REMINDED PT OF NEEDING URINE SPECIMEN. PT VERBALIZED UNDERSTANDING AND STATES STILL UNABLE TO GO AT THIS TIME SHE WENT PRIOR TO ARRIVAL. PT DENIES ANY NEEDS AT THIS TIME, CALL LIGHT REMAINS IN REACH.
--- NOTE | 2023-03-03 22:41 | PC.NURSE ---
2240-PHYSICIAN AT BEDSIDE
[2023-03-04 00:36] LABS: Reflex Lactic Acid Yes or No Add Lactic
== END 2023-03-03 22:58 | disposition home or self-care (01) ==
PROVIDERS: Emergency Provider Internal Medicine Critical Care Medicine; PCP Internal Medicine
DX: N28.9 Disorder of kidney and ureter, unspecified (principal); D64.9 Anemia, unspecified; E11.65 Type 2 diabetes mellitus with hyperglycemia; R53.1 Weakness; I10 Essential (primary) hypertension; Z79.84 Long term (current) use of oral hypoglycemic drugs; Z79.899 Other long term (current) drug therapy
CPT/HCPCS: 36415; 80053; 83605; 83690; 83735; 83880; 84443; 84484; 85025; 85610; 93005; 99284

== ENCOUNTER 2023-08-10 08:22 | Outpatient (CLI) | payer MEDICARE, OTHER, SELFPAY ==
[2023-08-10 08:59] LABS: Hemoglobin A1C 8.6 % (<5.7)
[2023-08-10 09:15] LABS: Alanine Aminotransferase 62 U/L (14-59); Albumin Level 3.7 g/dL (3.4-5.0); Alkaline Phosphatase 95 U/L (46-116); Anion Gap 9 mmol/L (8-16); Aspartate Amino Transferase 42 U/L (15-37); Bilirubin,Total 0.7 mg/dL (0.00-1.00); Blood Urea Nitrogen 16 mg/dL (7-18); Calcium 9.2 mg/dL (8.5-10.1); Carbon Dioxide 30 mmol/L (21-32); Chloride 101 mmol/L (98-108); Cholesterol 216 mg/dL (0-200); Estimated Glomerular Filt Rate 44; Glucose 214 mg/dL (70-99); HDL Direct 71 mg/dL (40-60); LDL Cholesterol Calculated 128 mg/dL (<130); Osmolality Calculated 297 mOsm/kg (285-295); Potassium 4.2 mmol/L (3.5-5.1); Sodium 140 mmol/L (136-145); Total Protein 7.4 g/dL (6.4-8.2); Triglycerides 87 mg/dL (0-150)
== END 2023-08-10 08:23 | disposition home or self-care (01) ==
LOC: CHSLAB 08:27
PROVIDERS: PCP Internal Medicine; Visit Provider Internal Medicine
DX: E11.59 Type 2 diabetes mellitus with other circulatory complications (principal); I15.2 Hypertension secondary to endocrine disorders
CPT/HCPCS: 36415; 80053; 80061; 83036